=== PATIENT | female | born 1975 | race Caucasian/White ===

== ENCOUNTER 2016-09-22 22:11 | Emergency (ER) | payer OTHER ==
[~2016-09-22] VITALS: Ht 174 cm; Wt 129.8 kg
[~2016-09-22 22:11] MED LIST: ONDA4TAB10 SL; ONDA4TAB7 SL
[2016-09-22 22:19] VITALS: BP 142/98; TEMP 37; Ht 174 cm; Wt 129.8 kg
[2016-09-22] MEDS ORDERED: LIDOCAINE HCL 2% VISC SOLN 20 ML UDC PO STA (22:49)
[2016-09-22] MEDS ORDERED: ALUMINUM/MAGNESIUM SUSP 30 ML UDC PO STA (22:49)
[2016-09-22 23:21] LABS: BASO % 0.2 %; BASO ABS # 0.03 K/uL (0-0.2); EOS % 2.3 %; HEMATOCRIT 31.2 % (37-47); IG% 0.3 %; LYMPH % 24.4 %; MEAN CELL VOLUME 64.9 fL (80-100); MEAN CORPUSCULAR HEMOGLOBIN 18.9 pg (25-34); MEAN CORPUSCULAR HGB CONC 29.2 g/dl (32-36); MONO % 3.7 %; NEUT % 69.1 %; PLATELET COUNT 440 K/uL (130-400); RED BLOOD COUNT 4.81 M/uL (4.2-5.4); WHITE BLOOD COUNT 15.97 K/uL (4.8-10.8)
[2016-09-22 23:23] LABS: URINE APPEARANCE CLEAR (CLEAR); URINE BILIRUBIN NEG (NEG); URINE COLOR YELLOW; URINE NITRITE NEG (NEG); URINE PH 6.5 (4.5-7.5); URINE SPECIFIC GRAVITY 1.021 (1.000-1.030); UROBILINOGEN NEG (NEG); ZZUR CULT IF INDIC CLEAN CATCH NO
[2016-09-22 23:33] LABS: MANUAL MICROSCOPIC REQUIRED? NO; REVIEW REQ? NO
[2016-09-22 23:38] LABS: ALT/SGPT 12 U/L (12-78); AST/SGOT 6 U/L (15-37); BLOOD UREA NITROGEN 13 mg/dl (7-18); BUN/CREATININE RATIO 15.2 (10-20); CALCIUM 8.5 mg/dl (8.5-10.1); CARBON DIOXIDE 23 mmol/L (21-32); CHLORIDE 108 mmol/L (98-107); CREATININE 0.85 mg/dl (0.60-1.20); GLUCOSE 104 mg/dl (70-99); MAGNESIUM 2.3 mg/dl (1.8-2.4); POTASSIUM 4.1 mmol/L (3.5-5.1); SODIUM 141 mmol/L (136-145)
[2016-09-22 23:48] LABS: ALKALINE PHOSPHATASE 87 U/L (45-117)
[2016-09-23] MEDS ORDERED: VNTHFA/IN INH (00:12)
[2016-09-23 00:19] LABS: PREG INTERNAL NEGATIVE QC NEG CLEAR BACKGROUND; PREG INTERNAL POSITIVE QC POS CONTROL LINE
[2016-09-23 00:32] LABS: ANISOCYTOSIS PRESENT; COMPLETE YES; MICROCYTOSIS PRESENT; POLYCHROMASIA 1+
[2016-09-23 00:49] VITALS: PULSE 76; O2SAT 100
[2016-09-23] MEDS ORDERED: PANTOprazole SOD 40 MG TAB PO STA (01:07)
[2016-09-23] MEDS ORDERED: PANT40TA PO (01:07)
[2016-09-23] MEDS ORDERED: ONDANSETRON HOME PACK 4MG OD TAB PO ONE (01:15)
--- NOTE | 2016-09-23 04:33 | EMERGENCY ROOM VISIT NOTE ---
History First contact with patient: 22:44 Chief Complaint: ABDOMINAL PAIN Stated Complaint: ABDOMINAL PAIN, NAUSEA Nursing Triage Summary: Patient c/o of abdominal pain, nausea and vomiting since July. Increased abdominal pain tonight. + Dizziness x 1 week. History of Present Illness The patient is a 40 year old female who presents to the Emergency Room with complaints of epigastric discomfort with burning and nausea for the past 2 months. Patient takes Zantac daily. No recent endoscopy. Last endoscopy was several years ago and showed gastritis. She is not on a PPI. Her gallbladder is removed. She does not drink alcohol. Patient denies chest pain, dyspnea, fever, chills, vomiting, diarrhea, black or blood in her stool. No colonoscopy. Patient also has a chronic cough. She does not smoke. Review of Systems See HPI for pertinent positives & negatives. A total of 10 systems reviewed and were otherwise negative. Past Medical/Surgical History Medical Problems: (1) Asthma (2) GERD (gastroesophageal reflux disease) (3) HTN (hypertension) (4) Kidney stone on left side (5) Ulcers (6) UTI (lower urinary tract infection) Surgical Problems: (1) H/O tubal ligation (2) Hx of cholecystectomy (3) Previous section Family History Cancer Diabetes mellitus FH: kidney disease FH: seizures Gallbladder disease Hypertension Kidney stones Lung disease Social History Smoking Status: Never Smoker Alcohol Use: none Marital Status: Housing Status: lives with family Current/Historical Medications Scheduled Pantoprazole (Protonix), 40 MG PO DAILY Scheduled PRN Albuterol Hfa (Ventolin Hfa), 2 PUFFS INH Q6H PRN for SOB/Wheezing Allergies Coded Allergies: Penicillins (Verified Allergy, Severe, "swells up and stops breathing", 04/07/14) Azithromycin (Verified Allergy, Intermediate, rash, 04/07/14) Physical Exam Vital Signs Date Time Temp Pulse Resp B/P Pulse Ox O2 Delivery O2 Flow Rate FiO2 09/23/16 00:49 76 16 100 Room Air 09/22/16 23:15 Room Air 09/22/16 22:19 37.0 80 18 142/98 98 Room Air Pain Rating (0-10): 0 Physical Exam VITALS: Vitals are noted on the nurse's note and reviewed by myself. Vital signs stable. GENERAL: Pleasant female, in no acute distress, nondiaphoretic, well-developed well-nourished. SKIN: The skin was without rashes, erythema, edema, or bruising. There is no tenting of the skin. Capillary reflex less than 2 seconds. HEAD: Normocephalic atraumatic. EARS: External auditory canals clear, tympanic membranes pearly munoz without erythema or effusion bilaterally. EYES: Pupils equal round and reactive to light and accommodation. Conjunctivae without injection, sclerae without icterus. Extraocular movements intact. NOSE: Patent, turbinates without inflammation or discharge. MOUTH: Mucous membranes moist. Pharynx without erythema or exudate. Uvula midline. Airway patent. Tongue does not deviate. NECK: Supple without nuchal rigidity. No lymphadenopathy. No thyromegaly. Cervical spine is nontender. No JVD. HEART: Regular rate and rhythm without murmurs gallops or rubs. LUNGS: Clear to auscultation bilaterally without wheezes, rales or rhonchi. No dullness to percussion. No retractions or accessory muscle use. ABDOMEN: Positive bowel sounds x 4. Normal tympanic percussion. Soft, protuberant, obese, tender to palpation epigastric region, without masses or organomegaly. Judge sign negative. No guarding or rebound tenderness. No CVA tenderness MUSCULOSKELETAL: No muscle atrophy, erythema, or edema noted. NEURO: Patient was alert and oriented to person place and time. Normal sensation to light and sharp touch. No focal neurological deficits. Medical Decision & Procedures Laboratory Results 09/22/16 23:09 Red Blood Count 4.81, Mean Corpuscular Volume 64.9, Mean Corpuscular Hemoglobin 18.9, Mean Corpuscular Hemoglobin Concent 29.2, Mean Platelet Volume 9.0, Neutrophils (%) (Auto) 69.1, Lymphocytes (%) (Auto) 24.4, Monocytes (%) (Auto) 3.7, Eosinophils (%) (Auto) 2.3, Basophils (%) (Auto) 0.2, Neutrophils # (Auto) 11.04, Lymphocytes # (Auto) 3.90, Monocytes # (Auto) 0.59, Eosinophils # (Auto) 0.37, Basophils # (Auto) 0.03 09/22/16 23:09 Test 09/22/16 22:41 09/22/16 23:09 Urine Color YELLOW Urine Appearance CLEAR (CLEAR) Urine pH 6.5 (4.5-7.5) Urine Specific [place] 1.021 (1.000-1.030) Urine Protein NEG (NEG) Urine Glucose (UA) NEG (NEG) Urine Ketones NEG (NEG) Urine Occult Blood NEG (NEG) Urine Nitrite NEG (NEG) Urine Bilirubin NEG (NEG) Urine Urobilinogen NEG (NEG) Urine Leukocyte Esterase NEG (NEG) White Blood Count 15.97 K/uL (4.8-10.8) Red Blood Count 4.81 M/uL (4.2-5.4) Hemoglobin 9.1 g/dL (12.0-16.0) Hematocrit 31.2 % (37-47) Mean Corpuscular Volume 64.9 fL (80-100) Mean Corpuscular Hemoglobin 18.9 pg (25-34) Mean Corpuscular Hemoglobin Concent 29.2 g/dl (32-36) Platelet Count 440 K/uL (130-400) Mean Platelet Volume 9.0 fL (7.4-10.4) Neutrophils (%) (Auto) 69.1 % Lymphocytes (%) (Auto) 24.4 % Monocytes (%) (Auto) 3.7 % Eosinophils (%) (Auto) 2.3 % Basophils (%) (Auto) 0.2 % Neutrophils # (Auto) 11.04 K/uL (1.4-6.5) Lymphocytes # (Auto) 3.90 K/uL (1.2-3.4) Monocytes # (Auto) 0.59 K/uL (0.11-0.59) Eosinophils # (Auto) 0.37 K/uL (0-0.5) Basophils # (Auto) 0.03 K/uL (0-0.2) RDW Standard Deviation 45.7 fL (36.4-46.3) RDW Coefficient of Variation 19.2 % (11.5-14.5) Immature Granulocyte % (Auto) 0.3 % Immature Granulocyte # (Auto) 0.04 K/uL (0.00-0.02) Polychromasia 1+ Anisocytosis PRESENT Microcytosis PRESENT Anion Gap 10.0 mmol/L (3-11) Est Creatinine Clear Calc Drug Dose 128.9 ml/min Estimated GFR () 100.7 Estimated GFR (Non- 86.9 BUN/Creatinine Ratio 15.2 (10-20) Calcium Level 8.5 mg/dl (8.5-10.1) Magnesium Level 2.3 mg/dl (1.8-2.4) Total Bilirubin 0.3 mg/dl (0.2-1) Direct Bilirubin < 0.1 mg/dl (0-0.2) Aspartate Amino Transf (AST/SGOT) 6 U/L (15-37) Alanine Aminotransferase (ALT/SGPT) 12 U/L (12-78) Alkaline Phosphatase 87 U/L (45-117) Total Protein 7.2 gm/dl (6.4-8.2) Albumin 2.8 gm/dl (3.4-5.0) Lipase 135 U/L (73-393) Thyroid Stimulating Hormone (TSH) 1.290 uIu/ml (0.300-4.500) Human Chorionic Gonadotropin, Qual NEG (NEG) Medications Administered Medications (Trade) Dose Ordered Sig/Kathie Route Start Time Stop Time Status Last Admin Dose Admin Lidocaine HCl (Viscous Lidocaine 2% Soln) 10 ml NOW STAT PO 09/22/16 22:49 09/22/16 22:53 DC 09/22/16 22:49 10 ML Al Hydroxide/Mg Hydroxide (Maalox Susp) 30 ml NOW STAT PO 09/22/16 22:49 09/22/16 22:53 DC 09/22/16 22:49 30 ML Pantoprazole Sodium (Protonix Tab) 40 mg NOW STAT PO 09/23/16 01:07 09/23/16 01:08 DC 09/23/16 01:07 40 MG Ondansetron HCl (ZOFRAN ODT 4MG Home Pack) 1 homepack UD ONCE PO 09/23/16 01:15 09/23/16 01:16 DC 09/23/16 01:15 1 HOMEPACK ED Course Prior records/ancillary studies reviewed. Triage Nursing notes reviewed. Additional history obtained from family. The patient's history was concerning for abdominal pain. Differential diagnosis: Etiologies such as appendicitis, diverticulitis, PUD, biliary pathology, UTI, pancreatitis, obstruction, mesenteric ischemia, aortic pathology, infections, inflammatory bowel disease, renal colic, as well as others were entertained. Physical examination findings: As above. ER treatment provided: GI cocktail, Protonix On reassessment the patient felt better. Diagnostics interpreted by me: ECG: Normal sinus, normal intervals, no acute ST-T wave changes. Impression normal sinus rhythm interpreted by myself The labs revealed leukocytosis, stable per chart review. Mild anemia stable per chart review. Imaging studies: Ultrasound showed fatty liver per stat radiology. Chest x-ray with no acute consolidation or pneumothorax per my interpretation. Exam and history seems consistent with GERD. Patient felt much better after being medicated as above. She states she has a chronic anemia and takes iron most likely from her heavy menstrual cycles. Patient states she sees OB for this. Patient states she's had a chronic leukocytosis. This is unchanged for her. She was advised to get her cholesterol checked. Patient was advised to update her endoscopy. She is advised follow-up family medicine in a few days or here in the ER sooner for chest pain, difficulty breathing, black or blood in her stool, abdominal pain, worsening signs or symptoms or as needed. Patient did not have acute abdomen on exam. She is well-appearing. She requested to leave. By the evaluation outlined above emergent etiologies such as appendicitis, diverticulitis, PUD, biliary pathology, UTI, pancreatitis, obstruction, mesenteric ischemia, aortic pathology, infections, inflammatory bowel disease, renal colic, as well as others were deemed relatively unlikely. The pt informed about the findings as listed above. All questions were answered and pleased with the treatment. Return instructions were outlined and the patient was discharged in stable condition. Outpatient prescription management: protonix Referral: The patient was referred back to their primary care physician for follow-up in 2 to 3 days for a recheck of the current condition. Medical Decision as above Impression Primary Impression: GERD (gastroesophageal reflux disease) Departure Information Dispostion Home / Self-Care Condition GOOD Prescriptions Pantoprazole (Protonix) 40 Mg Tab 40 MG PO DAILY for 14 Days, #14 TAB Prov: Ruth Tatum .LADARIUS 09/23/16 Forms Call Back Authorization, HOME CARE DOCUMENTATION FORM, IMPORTANT VISIT INFORMATION Patient Instructions GERD, My [facility] [place] [facility] Additional Instructions Protonix 40 m tablet daily for the next 2 weeks. Takes on empty stomach. Try Maalox for breakthrough symptoms. Avoid large meals. Follow up with your [facility] for your chronic anemia. Follow-up with family care for cholesterol check, elevated white blood count , and follow-up today's visit in 2-3 days. Return to ER sooner for chest pain, difficulty breathing, abdominal pain, black or blood in her stool, worsening signs or symptoms or as needed. Problem Qualifiers Primary Impression: GERD (gastroesophageal reflux disease) Esophagitis presence: esophagitis presence not specified Qualified Codes: K21.9 - Gastro-esophageal reflux disease without esophagitis
--- NOTE | 2016-09-23 07:09 | DIAGNOSTIC IMAGING REPORT ---
CHEST 2 VIEWS ROUTINE CLINICAL HISTORY: Cough. COMPARISON STUDY: Chest radiograph July 16, 2016. FINDINGS: Lung volumes are normal. There are no areas of consolidation to suggest pneumonia. There is no pneumothorax or pleural effusion. Cardiac size is normal. Mediastinal contours are normal. There are cholecystectomy clips. IMPRESSION: No acute cardiopulmonary findings. Electronically signed by: Puma Davis M.D. 09/23/2016 7:07 AM Dictated Date/Time: 09/23/2016 7:07 AM
--- NOTE | 2016-09-23 07:19 | DIAGNOSTIC IMAGING REPORT ---
ULTRASOUND RIGHT UPPER QUADRANT ABDOMEN CLINICAL HISTORY: Epigastric abdominal pain. COMPARISON STUDY: Abdominal CT dated 11/29/2013. TECHNIQUE: Real-time, grayscale, and color flow sonography of the right upper quadrant of the abdomen was performed. Images are reviewed in the transverse and longitudinal planes. FINDINGS: Liver: The liver is enlarged, measuring over 20 cm in length. The liver demonstrates heterogeneously increased echotexture consistent with moderate to severe hepatic steatosis. There is no intrahepatic biliary ductal dilatation. The main portal vein is patent. Gallbladder: The gallbladder is surgically absent. The common bile duct measures up to 0.7 cm in diameter. Pancreas: Visualized portions of the pancreatic head are normal in appearance. Majority of the pancreas was not well visualized. Right kidney: Survey images of the right kidney demonstrate normal size and echotexture. There is no hydronephrosis. A 1.2 cm cyst is incidentally noted. Ascites: None. IMPRESSION: 1. No acute sonographic abnormality is identified in the right upper quadrant noting status post cholecystectomy. 2. Hepatomegaly noting moderate to severe hepatic steatosis. Electronically signed by: Edgard Ray M.D. 09/23/2016 7:18 AM Dictated Date/Time: 09/23/2016 7:16 AM
[2016-12-16] MEDS ORDERED: POLY150C4 PO (10:56)
[2016-12-16] MEDS ORDERED: PANT40TA PO (10:56)
[2016-12-16] MEDS ORDERED: ONDA4TAB46 PO (10:56)
[2016-12-16] MEDS ORDERED: LEVOIUD (10:56)
== END 2016-09-23 01:28 | disposition home or self-care (01) ==
LOC: C.EDB 22:13 → C.EDA 09-23 01:28
DX: K21.9 Gastro-esophageal reflux disease without esophagitis (principal); J45.909 Unspecified asthma, uncomplicated; I10 Essential (primary) hypertension; Z87.442 Personal history of urinary calculi; Z83.79 Family history of other diseases of the digestive system; Z83.3 Family history of diabetes mellitus; Z82.49 Family history of ischemic heart disease and other diseases of the circulatory system; Z84.1 Family history of disorders of kidney and ureter; Z79.899 Other long term (current) drug therapy

== ENCOUNTER → 2016-10-03 | Outpatient (CLI) | payer OTHER ==
[~2016-10-03] MED LIST changes: +LEVOIUD; -ONDA4TAB10 SL; +ONDA4TAB46 PO; -ONDA4TAB7 SL; +PANT40TA PO; +POLY150C4 PO; +VNTHFA/IN INH
[2016-10-03 12:51] LABS: BASO % 0.1 %; BASO ABS # 0.02 K/uL (0-0.2); EOS % 1.9 %; IG% 0.3 %; LYMPH % 22.1 %; MEAN CELL VOLUME 63.6 fL (80-100); MEAN CORPUSCULAR HEMOGLOBIN 18.9 pg (25-34); MEAN CORPUSCULAR HGB CONC 29.7 g/dl (32-36); MEAN PLATELET VOLUME 9.2 fL (7.4-10.4); MONO % 2.8 %; NEUT % 72.8 %; PLATELET COUNT 439 K/uL (130-400); RED BLOOD COUNT 5.19 M/uL (4.2-5.4); WHITE BLOOD COUNT 14.01 K/uL (4.8-10.8)
[2016-10-03 13:29] LABS: COMPLETE YES; HYPOCHROMIA PRESENT; MICROCYTOSIS PRESENT; OVALOCYTES 1+
[2016-10-03 17:27] LABS: ALKALINE PHOSPHATASE 93 U/L (45-117); ALT/SGPT 14 U/L (12-78); AST/SGOT 11 U/L (15-37); BLOOD UREA NITROGEN 13 mg/dl (7-18); BUN/CREATININE RATIO 14.5 (10-20); CALCIUM 8.7 mg/dl (8.5-10.1); CARBON DIOXIDE 25 mmol/L (21-32); CHLORIDE 107 mmol/L (98-107); CHOLESTEROL 159 mg/dl (0-200); CHOLESTEROL/HDL RATIO 3.8; GLUCOSE 82 mg/dl (70-99); HDL CHOLESTEROL 42 mg/dl; LDL CHOLESTEROL CALCULATED 94 mg/dl; POTASSIUM 4.3 mmol/L (3.5-5.1); SODIUM 140 mmol/L (136-145); TRIGLYCERIDES 114 mg/dl (0-150); VERY LOW DENSITY LIPOPROT CALC 23 mg/dl
[2016-10-03 17:34] LABS: ALB/GLOB RATIO 0.7 (0.9-2); TOTAL IRON BINDING CAPACITY 396 mcg/dl (250-450)
== END | disposition home or self-care (01) ==
LOC: C.LABPBG 11:40
PROVIDERS: ATTEND Neuromusculoskeletal Medicine & OMM
DX: D64.9 Anemia, unspecified (principal); R42 Dizziness and giddiness

== ENCOUNTER → 2016-10-05 | Outpatient (CLI) | payer OTHER ==
[2016-10-11 23:33] LABS: IGA SERUM 210 mg/dL (81-463); TIS TRANS IGA 1 U/mL (<4)
== END | disposition home or self-care (01) ==
LOC: C.LABPBG 12:36
PROVIDERS: ATTEND Registered Nurse
DX: D64.9 Anemia, unspecified (principal)

== ENCOUNTER → 2016-12-21 | Day surgery (SDC) | payer OTHER ==
[2016-12-16 10:57] VITALS: BMI 42.0
[~2016-12-21] VITALS: Ht 175.3 cm; Wt 129.6 kg
[~2016-12-21] MED LIST changes: +LIDOCAINE HCL 2% 2 ML VIAL (20MG/ML) ONE; +MIDAZOLAM HCL 1 MG/ML 2ML VIAL ONE; +ONDANSETRON INJ 2 MG/ML 2 ML VIAL ONE; +PROPOFOL IV EMULSION 10 MG/ML 20 ML VIAL IV ONE; +SODIUM CHLORIDE 0.9% 500ML 500 ML IV ONE
[2016-12-21 12:17] VITALS: Ht 175.3 cm; Wt 129.6 kg
[2016-12-21 12:36] VITALS: TEMP 37.1
--- NOTE | 2016-12-21 13:29 | Endo History and Physical ---
History & Physical Date of Service: December 21, 2016. Chief Complaint: EOSINOPHILIC ESOPHAGITIS Referring Physician: DR. BOWERS History of Present Illness 41 yo CF who presents for EGD secondary to eosinophilic esophagitis. Past Surgical History Hx Cardiac Surgery: No Hx Internal Defibrillator: No Hx Pacemaker: No Hx Abdominal Surgery: Yes (MICHEL, , TUBAL LIGATION, MULTIPLE D&C'S) Hx of Implantable Prosthesis: No Hx Post-Op Nausea and Vomiting: No Hx Cancer Surgery: No Hx Thoracic Surgery: No Hx Orthopedic: No Hx Urinary Tract Surgery: No Family History IBD Social History Smoking Status: Never Smoker Hx Substance Use: No Hx Alcohol Use: No Allergies Coded Allergies: Penicillins (Verified Allergy, Severe, "swells up and stops breathing", ) Azithromycin (Verified Allergy, Intermediate, rash, 12/21/16) Current Medications Reported Home Medications Medications Dose Route/Sig Max Daily Dose Days Date Category Mirena (Levonorgestrel (Iud)) 20 Mcg/24 Hr Iud 1 Unit CONTINOUS 12/16/16 Reported Zofran (Ondansetron HCl) 4 Mg Tab 4 Mg PO Q8H PRN 12/16/16 Reported Protonix (Pantoprazole Sodium) 40 Mg Tab 40 Mg PO QAM 12/16/16 Reported Ferrex 150 (Polysaccharide Iron Complex) 150 Mg Cap 1 Cap PO HS 12/16/16 Reported Ventolin Hfa (Albuterol) 200 Puffs/34971 Mcg Aers 1 Puffs INH Q6H PRN 09/23/16 Reported Vital Signs Weight (Kilograms): 129.55 Height (Feet): 5 Height (Inches): 9 Date Time Temp Pulse Resp B/P Pulse Ox O2 Delivery O2 Flow Rate FiO2 12/21/16 12:36 37.1 80 20 149/92 97 Room Air Physical Exam General Appearance: WD/WN, no apparent distress Respiratory/Chest: Auscultation: breath sounds normal Cardiovascular: Heart Auscultation: RRR Abdomen: Bowel Sounds: normal Inspection & Palpation: soft, non-distended, no tenderness, guarding & rebound Assessment and Plan Assessment: 41 yo CF who presents for EGD secondary to eosinophilic esophagitis. Plan: Proceed with EGD
--- NOTE | 2016-12-21 13:58 | Discharge Instructions ---
Endoscopy Patient Instructions Date / Procedure(s) Performed December 21, 2016. EGD Allergy Information Coded Allergies: Penicillins (Verified Allergy, Severe, "swells up and stops breathing", ) Azithromycin (Verified Allergy, Intermediate, rash, 12/21/16) Discharge Date / Findings December 21, 2016. Eosinophilic esophagitis s/p biopsies Esophageal stricture s/p dilation to 15mm Medication Instructions OK to resume all medications today as prescribed Reported Home Medications Medications Dose Route/Sig Max Daily Dose Days Date Category Mirena (Levonorgestrel (Iud)) 20 Mcg/24 Hr Iud 1 Unit CONTINOUS 12/16/16 Reported Zofran (Ondansetron HCl) 4 Mg Tab 4 Mg PO Q8H PRN 12/16/16 Reported Protonix (Pantoprazole Sodium) 40 Mg Tab 40 Mg PO QAM 12/16/16 Reported Ferrex 150 (Polysaccharide Iron Complex) 150 Mg Cap 1 Cap PO HS 12/16/16 Reported Ventolin Hfa (Albuterol) 200 Puffs/63693 Mcg Aers 1 Puffs INH Q6H PRN 09/23/16 Reported Provider Instructions Activity Restrictions - No exercising or heavy lifting for 24 hours. - Do not drink alcohol the day of the procedure. - Do not drive a car or operate machinery until the day after the procedure. - Do not make any important decisions or sign important papers in 24 hours after the procedure. Following Day: - Return to full activity which may include returning to work/school. Diet Start your diet with liquids and light foods (jello, soup, juice, toast). Then eat your usual diet if not nauseated. Treatment For Common After Affects For mild abdominal pain, bloating, or excessive gas: - Rest - Eat lightly - Lie on right side Follow-Up Information Follow-up with DR. BOWERS as scheduled Anesthesia Information What You Should Know You have had a procedure that required some medicine to reduce anxiety and discomfort. This treatment is called moderate sedation. After receiving the treatment, you may be sleepy, but you will be able to breathe on your own. The effects of the treatment may last for several hours. Follow these instructions along with Activity/Diet recommendations noted above: * Do NOT do anything where dizziness or clumsiness would be dangerous. * Rest quietly at home today, then you can be up and about tomorrow. * Have a responsible person stay with you the rest of today. * You may have had an I.V. today. If so, you may take the dressing off later today. Recommendations Call your doctor if: * Trouble breathing * Continuous vomiting for more than 24 hours * Temperature above 101 degrees * Severe abdominal pain or bloating * Pain not relieved by pain medicine ordered * There is increased drainage or redness from any incision * A large amount of rectal bleeding greater than 2-3 tablespoons. (If you had a polyp/s removed or have hemorrhoids, a small amount of blood - from the rectum is to be expected.) * You have any unanswered questions or concerns. IN THE EVENT OF A SERIOUS EMERGENCY, GO TO THE NEAREST EMERGENCY ROOM Your discharge instructions were prepared by provider Leopoldo Angelo. Patient Instructions Signature Page Kristen Carcamo Patient (or Guardian) Signature/Date: I have read and understand the instructions given to me by my caregivers. Caregiver/RN/Doctor Signature/Date: The above-named patient and/or guardian has received patient instructions on this date. + Original Patient Signature Page (only) stays with chart. Please make copy for patient.
--- NOTE | 2016-12-21 14:06 | GI REPORT ---
Procedure Date: 12/21/2016 1:13 PM Procedure: Upper GI endoscopy Indications: Follow-up of eosinophilic esophagitis Medicines: Monitored Anesthesia Care Complications: No immediate complications. Estimated Blood Loss: Estimated blood loss: none. Procedure: Pre-Anesthesia Assessment: - Prior to the procedure, a History and Physical was performed, and patient medications and allergies were reviewed. The patient's tolerance of previous anesthesia was also reviewed. The risks and benefits of the procedure and the sedation options and risks were discussed with the patient. All questions were answered, and informed consent was obtained. Prior Anticoagulants: The patient has taken no previous anticoagulant or antiplatelet agents. ASA Grade Assessment: III - A patient with severe systemic disease. After reviewing the risks and benefits, the patient was deemed in satisfactory condition to undergo the procedure. After obtaining informed consent, the endoscope was passed under direct vision. Throughout the procedure, the patient's blood pressure, pulse, and oxygen saturations were monitored continuously. The scope was introduced through the mouth, and advanced to the second part of duodenum. The upper GI endoscopy was accomplished without difficulty. The patient tolerated the procedure well. Findings: Mucosal changes including ringed esophagus and longitudinal furrows were found in the entire esophagus. Biopsies were taken with a cold forceps for histology. One moderate benign-appearing, intrinsic stenosis was found. This measured 1.2 cm (inner diameter) x 1 cm (in length) and was traversed. A TTS dilator was passed through the scope. Dilation with a 12-13.5-15 mm balloon (to a maximum balloon size of 15 mm) dilator was performed. The dilation site was examined and showed moderate improvement in luminal narrowing. The stomach was normal. The examined duodenum was normal. Impression: - Esophageal mucosal changes consistent with eosinophilic esophagitis. Biopsied. - Benign-appearing esophageal stenosis. Dilated. - Normal stomach. - Normal examined duodenum. Recommendation: - Resume previous diet. - Continue present medications. - Await pathology results. - Return to GI office as previously scheduled. Leopoldo Angelo DO 12/21/2016 2:05:19 PM This report has been signed electronically. Note Initiated On: 12/21/2016 1:13 PM I attest to the content of the Intraoperative Record and orders documented therein, exceptions below
--- NOTE | 2016-12-21 14:16 | Anesthesiology Progress Note ---
Anesthesia Post Op Note Date & Time December 21, 2016 at 14:16 Vital Signs Pain Intensity: 0 Vital Signs Past 12 Hours Date Time Temp Pulse Resp B/P Pulse Ox O2 Delivery O2 Flow Rate FiO2 12/21/16 14:05 84 18 130/85 98 Room Air 12/21/16 13:50 85 20 134/80 95 Room Air 12/21/16 12:36 37.1 80 20 149/92 97 Room Air Notes Mental Status: alert / awake / arousable, participated in evaluation Pt Amnestic to Procedure: Yes Nausea / Vomiting: adequately controlled Pain: adequately controlled Airway Patency, RR, SpO2: stable & adequate BP & HR: stable & adequate Hydration State: stable & adequate Anesthetic Complications: no major complications apparent
[2016-12-21 14:20] VITALS: BP 119/72; PULSE 82; O2SAT 98
== END | disposition home or self-care (01) ==
LOC: C.GI 12:10
PROVIDERS: ATTEND Internal Medicine
DX: K20.0 Eosinophilic esophagitis (principal); K22.2 Esophageal obstruction; Z83.79 Family history of other diseases of the digestive system; Z79.899 Other long term (current) drug therapy

== ENCOUNTER → 2017-01-06 | Outpatient (CLI) | payer OTHER ==
[~2017-01-06] MED LIST changes: -LIDOCAINE HCL 2% 2 ML VIAL (20MG/ML) ONE; -MIDAZOLAM HCL 1 MG/ML 2ML VIAL ONE; -ONDANSETRON INJ 2 MG/ML 2 ML VIAL ONE; -PROPOFOL IV EMULSION 10 MG/ML 20 ML VIAL IV ONE; -SODIUM CHLORIDE 0.9% 500ML 500 ML IV ONE
[2017-01-06 17:19] LABS: URINE APPEARANCE CLEAR (CLEAR); URINE BILIRUBIN NEG (NEG); URINE COLOR YELLOW; URINE EPITHELIAL CELL AUTO 20-30 /lpf (0-5); URINE NITRITE NEG (NEG); URINE SPECIFIC GRAVITY 1.029 (1.000-1.030); UROBILINOGEN NEG (NEG); ZZUR CULT IF INDIC CLEAN CATCH NO
[2017-01-06 17:21] LABS: MANUAL MICROSCOPIC REQUIRED? NO; REVIEW REQ? NO
== END | disposition home or self-care (01) ==
LOC: C.LABPBG 15:45
PROVIDERS: ATTEND Neuromusculoskeletal Medicine & OMM
DX: R35.0 Frequency of micturition (principal)

== ENCOUNTER → 2017-01-09 | Outpatient (CLI) | payer OTHER ==
[2017-01-09 18:09] LABS: BASO % 0.1 %; BASO ABS # 0.02 K/uL (0-0.2); COMPLETE YES; EOS % 1.4 %; HEMATOCRIT 33.8 % (37-47); IG% 0.3 %; LYMPH % 20.6 %; LYMPH ABS # 2.99 K/uL (1.2-3.4); MEAN CELL VOLUME 66.3 fL (80-100); MEAN CORPUSCULAR HGB CONC 28.7 g/dl (32-36); MEAN PLATELET VOLUME 9.3 fL (7.4-10.4); MICROCYTOSIS PRESENT; MONO % 4.3 %; NEUT % 73.3 %; OVALOCYTES 1+; PLATELET COUNT 527 K/uL (130-400); POLYCHROMASIA 1+; WHITE BLOOD COUNT 14.54 K/uL (4.8-10.8)
== END | disposition home or self-care (01) ==
LOC: C.LABPBG 15:53
PROVIDERS: ATTEND Obstetrics & Gynecology
DX: Z30.430 Encounter for insertion of intrauterine contraceptive device (principal); N92.0 Excessive and frequent menstruation with regular cycle; R10.2 Pelvic and perineal pain

== ENCOUNTER → 2017-01-24 | Day surgery (SDC) | payer OTHER ==
[2017-01-16 08:20] VITALS: Ht 174 cm; Wt 129.6 kg
[~2017-01-24] VITALS: Ht 174 cm; Wt 129.6 kg
[~2017-01-24] MED LIST changes: +ATROPINE SULFATE 0.1 MG/ML 5ML SYR IV PRN; +EpHEDrine SULFATE INJ 50 MG/ML AMP IV PRN; +MIDAZOLAM HCL 1 MG/ML 2ML VIAL ONE; +PROPOFOL IV EMULSION 10 MG/ML 20 ML VIAL IV ONE; +SODIUM CHLORIDE 0.9% 500ML 500 ML IV ONE
--- NOTE | 2017-01-24 11:57 | Endo History and Physical ---
History & Physical Date of Service: Jan 24, 2017. Chief Complaint: anemia Referring Physician: Dr. Misael Davis History of Present Illness 41 yo CF who presents for colonoscopy secondary to anemia. Past Surgical History Hx Cardiac Surgery: No Hx Internal Defibrillator: No Hx Pacemaker: No Hx Abdominal Surgery: Yes (MICHEL, , TUBAL LIGATION, MULTIPLE D&C'S) Hx of Implantable Prosthesis: No Hx Post-Op Nausea and Vomiting: No Hx Cancer Surgery: No Hx Thoracic Surgery: No Hx Orthopedic: No Hx Urinary Tract Surgery: No Family History None Social History Smoking Status: Never Smoker Hx Substance Use: No Hx Alcohol Use: No Allergies Coded Allergies: Penicillins (Verified Allergy, Severe, "swells up and stops breathing", 07/23) Azithromycin (Verified Allergy, Intermediate, rash, 01/16/17) Current Medications Reported Home Medications Medications Dose Route/Sig Max Daily Dose Days Date Category Mirena (Levonorgestrel (Iud)) 20 Mcg/24 Hr Iud 1 Unit CONTINOUS 12/16/16 Reported Zofran (Ondansetron HCl) 4 Mg Tab 4 Mg PO Q8H PRN 12/16/16 Reported Protonix (Pantoprazole Sodium) 40 Mg Tab 40 Mg PO QAM 12/16/16 Reported Ferrex 150 (Polysaccharide Iron Complex) 150 Mg Cap 1 Cap PO HS 12/16/16 Reported Ventolin Hfa (Albuterol) 200 Puffs/31900 Mcg Aers 1 Puffs INH Q6H PRN 09/23/16 Reported Vital Signs Weight (Kilograms): 129.55 Height (Feet): 5 Height (Inches): 8.5 Date Time Temp Pulse Resp B/P (MAP) Pulse Ox O2 Delivery O2 Flow Rate FiO2 01/24/17 11:06 36.9 90 20 132/88 (103) 97 Room Air Physical Exam General Appearance: WD/WN, no apparent distress Respiratory/Chest: Auscultation: breath sounds normal Cardiovascular: Heart Auscultation: RRR Abdomen: Bowel Sounds: normal Inspection & Palpation: soft, non-distended, no tenderness, guarding & rebound Assessment and Plan Assessment: 41 yo CF who presents for colonoscopy secondary to anemia. Plan: Proceed with colonoscopy.
--- NOTE | 2017-01-24 12:13 | Discharge Instructions ---
Endoscopy Patient Instructions Date / Procedure(s) Performed Jan 24, 2017. Colonoscopy Allergy Information Coded Allergies: Penicillins (Verified Allergy, Severe, "swells up and stops breathing", 07/23) Azithromycin (Verified Allergy, Intermediate, rash, 01/16/17) Discharge Date / Findings Jan 24, 2017. Diverticulosis Internal hemorrhoids Medication Instructions OK to resume all medications today as prescribed Medications Dose Route/Sig Max Daily Dose Days Date Category Mirena (Levonorgestrel (Iud)) 20 Mcg/24 Hr Iud 1 Unit CONTINOUS 12/16/16 Reported Zofran (Ondansetron HCl) 4 Mg Tab 4 Mg PO Q8H PRN 12/16/16 Reported Protonix (Pantoprazole Sodium) 40 Mg Tab 40 Mg PO QAM 12/16/16 Reported Ferrex 150 (Polysaccharide Iron Complex) 150 Mg Cap 1 Cap PO HS 12/16/16 Reported Ventolin Hfa (Albuterol) 200 Puffs/42511 Mcg Aers 1 Puffs INH Q6H PRN 09/23/16 Reported Provider Instructions Activity Restrictions - No exercising or heavy lifting for 24 hours. - Do not drink alcohol the day of the procedure. - Do not drive a car or operate machinery until the day after the procedure. - Do not make any important decisions or sign important papers in 24 hours after the procedure. Following Day: - Return to full activity which may include returning to work/school. Diet Start your diet with liquids and light foods (jello, soup, juice, toast). Then eat your usual diet if not nauseated. Treatment For Common After Affects For mild abdominal pain, bloating, or excessive gas: - Rest - Eat lightly - Lie on right side Follow-Up Information Follow-up with Dr. Misael Davis as scheduled Anesthesia Information What You Should Know You have had a procedure that required some medicine to reduce anxiety and discomfort. This treatment is called moderate sedation. After receiving the treatment, you may be sleepy, but you will be able to breathe on your own. The effects of the treatment may last for several hours. Follow these instructions along with Activity/Diet recommendations noted above: * Do NOT do anything where dizziness or clumsiness would be dangerous. * Rest quietly at home today, then you can be up and about tomorrow. * Have a responsible person stay with you the rest of today. * You may have had an I.V. today. If so, you may take the dressing off later today. Recommendations Call your doctor if: * Trouble breathing * Continuous vomiting for more than 24 hours * Temperature above 101 degrees * Severe abdominal pain or bloating * Pain not relieved by pain medicine ordered * There is increased drainage or redness from any incision * A large amount of rectal bleeding greater than 2-3 tablespoons. (If you had a polyp/s removed or have hemorrhoids, a small amount of blood - from the rectum is to be expected.) * You have any unanswered questions or concerns. IN THE EVENT OF A SERIOUS EMERGENCY, GO TO THE NEAREST EMERGENCY ROOM Your discharge instructions were prepared by provider Leopoldo Angelo. Patient Instructions Signature Page Kristen Carcamo Patient (or Guardian) Signature/Date: I have read and understand the instructions given to me by my caregivers. Caregiver/RN/Doctor Signature/Date: The above-named patient and/or guardian has received patient instructions on this date. + Original Patient Signature Page (only) stays with chart. Please make copy for patient.
--- NOTE | 2017-01-24 12:18 | GI REPORT ---
Procedure Date: 01/24/2017 11:55 AM THIS REPORT HAS BEEN AMENDED Addendum Number: 1 Addendum Date: 01/30/2017 4:44:48 PM No specimens were collected on this exam, and therefore, no pathology is pending. Repeat colonoscopy in 10 years. Procedure: Colonoscopy Indications: Iron deficiency anemia Medicines: Monitored Anesthesia Care Complications: No immediate complications. Estimated Blood Loss: Estimated blood loss: none. Procedure: Pre-Anesthesia Assessment: - Prior to the procedure, a History and Physical was performed, and patient medications and allergies were reviewed. The patient's tolerance of previous anesthesia was also reviewed. The risks and benefits of the procedure and the sedation options and risks were discussed with the patient. All questions were answered, and informed consent was obtained. Prior Anticoagulants: The patient has taken no previous anticoagulant or antiplatelet agents. ASA Grade Assessment: II - A patient with mild systemic disease. After reviewing the risks and benefits, the patient was deemed in satisfactory condition to undergo the procedure. After I obtained informed consent, the scope was passed under direct vision. Throughout the procedure, the patient's blood pressure, pulse, and oxygen saturations were monitored continuously. The scope was introduced through the anus and advanced to the terminal ileum. The colonoscopy was performed without difficulty. The patient tolerated the procedure well. The quality of the bowel preparation was good. The terminal ileum, ileocecal valve, appendiceal orifice, and rectum were photographed. Findings: Scattered small-mouthed diverticula were found in the entire colon. Non-bleeding internal hemorrhoids were found during retroflexion. The hemorrhoids were small. Impression: - Diverticulosis in the sigmoid colon. - Non-bleeding internal hemorrhoids. - No specimens collected. Recommendation: - Resume previous diet. - Continue present medications. - Repeat colonoscopy for surveillance based on pathology results. - Return to primary care physician as previously scheduled. Leopoldo Angelo, DO 01/24/2017 12:17:11 PM This report has been signed electronically. Note Initiated On: 01/24/2017 11:55 AM I attest to the content of the Intraoperative Record and orders documented therein, exceptions below Leopoldo Angelo, DO 01/30/2017 4:45:58 PM This report has been signed electronically.
--- NOTE | 2017-01-24 12:22 | Anesthesiology Progress Note ---
Anesthesia Post Op Note Date & Time Jan 24, 2017 at 12:22 Vital Signs Pain Intensity: 0 Vital Signs Past 12 Hours Date Time Temp Pulse Resp B/P (MAP) Pulse Ox O2 Delivery O2 Flow Rate FiO2 01/24/17 12:14 92 16 111/69 (83) 95 Room Air 01/24/17 11:06 36.9 90 20 132/88 (103) 97 Room Air Notes Mental Status: alert / awake / arousable, participated in evaluation Pt Amnestic to Procedure: Yes Nausea / Vomiting: adequately controlled Pain: adequately controlled Airway Patency, RR, SpO2: stable & adequate BP & HR: stable & adequate Hydration State: stable & adequate Anesthetic Complications: no major complications apparent
[2017-01-24 12:48] VITALS: BP 117/89; PULSE 87; O2SAT 97
== END | disposition home or self-care (01) ==
LOC: C.GI 10:47
PROVIDERS: ATTEND Internal Medicine
DX: K57.30 Diverticulosis of large intestine without perforation or abscess without bleeding (principal); K64.8 Other hemorrhoids; D50.9 Iron deficiency anemia, unspecified; Z79.899 Other long term (current) drug therapy

== ENCOUNTER → 2017-05-17 | Day surgery (SDC) | payer OTHER ==
[2017-05-10 14:49] VITALS: Ht 174 cm; Wt 129.6 kg
[~2017-05-17] VITALS: Ht 174 cm; Wt 129.6 kg
[~2017-05-17] MED LIST changes: -ATROPINE SULFATE 0.1 MG/ML 5ML SYR IV PRN; -EpHEDrine SULFATE INJ 50 MG/ML AMP IV PRN; +LIDOCAINE HCL 2% 2 ML VIAL (20MG/ML) ONE; -MIDAZOLAM HCL 1 MG/ML 2ML VIAL ONE
--- NOTE | 2017-05-17 14:09 | Endo History and Physical ---
History & Physical Date of Service: May 17, 2017. Chief Complaint: eosinophilic esophagitis Referring Physician: Dr. Misael Davis History of Present Illness 41 yo CF who presents for EGD secondary to Eosinophilic esophagitis. Past Surgical History Hx Cardiac Surgery: No Hx Internal Defibrillator: No Hx Pacemaker: No Hx Abdominal Surgery: Yes (MICHEL, , TUBAL LIGATION, MULTIPLE D&C'S) Hx of Implantable Prosthesis: No Hx Post-Op Nausea and Vomiting: No Hx Cancer Surgery: No Hx Thoracic Surgery: No Hx Orthopedic: No Hx Urinary Tract Surgery: No Family History None Social History Smoking Status: Never Smoker Hx Substance Use: No Hx Alcohol Use: No Allergies Coded Allergies: Penicillins (Verified Allergy, Severe, "swells up and stops breathing", ) Azithromycin (Verified Allergy, Intermediate, rash, 05/10/17) Current Medications Reported Home Medications Medications Dose Route/Sig Max Daily Dose Days Date Category Mirena (Levonorgestrel (Iud)) 20 Mcg/24 Hr Iud 1 Unit CONTINOUS 12/16/16 Reported Zofran (Ondansetron HCl) 4 Mg Tab 4 Mg PO Q8H PRN 12/16/16 Reported Protonix (Pantoprazole Sodium) 40 Mg Tab 40 Mg PO QAM 12/16/16 Reported Ferrex 150 (Polysaccharide Iron Complex) 150 Mg Cap 1 Cap PO HS 12/16/16 Reported Ventolin Hfa (Albuterol) 200 Puffs/73382 Mcg Aers 1 Puffs INH Q6H PRN 09/23/16 Reported Vital Signs Weight (Kilograms): 129.55 Height (Feet): 5 Height (Inches): 8.5 Date Time Temp Pulse Resp B/P (MAP) Pulse Ox O2 Delivery O2 Flow Rate FiO2 05/17/17 13:44 36.6 92 18 142/88 (106) 97 Room Air Physical Exam General Appearance: WD/WN, no apparent distress Respiratory/Chest: Auscultation: breath sounds normal Cardiovascular: Heart Auscultation: RRR Abdomen: Bowel Sounds: normal Inspection & Palpation: soft, non-distended, no tenderness, guarding & rebound Assessment and Plan Assessment: 41 yo CF who presents for EGD secondary to Eosinophilic esophagitis. Plan: Proceed with colonoscopy.
--- NOTE | 2017-05-17 14:33 | GI REPORT ---
Procedure Date: 05/17/2017 1:35 PM Procedure: Upper GI endoscopy Indications: Eosinophilic esophagitis Medicines: Monitored Anesthesia Care Complications: No immediate complications. Estimated Blood Loss: Estimated blood loss: none. Procedure: Pre-Anesthesia Assessment: - Prior to the procedure, a History and Physical was performed, and patient medications and allergies were reviewed. The patient's tolerance of previous anesthesia was also reviewed. The risks and benefits of the procedure and the sedation options and risks were discussed with the patient. All questions were answered, and informed consent was obtained. Prior Anticoagulants: The patient has taken no previous anticoagulant or antiplatelet agents. ASA Grade Assessment: II - A patient with mild systemic disease. After reviewing the risks and benefits, the patient was deemed in satisfactory condition to undergo the procedure. After obtaining informed consent, the endoscope was passed under direct vision. Throughout the procedure, the patient's blood pressure, pulse, and oxygen saturations were monitored continuously. The Scope was introduced through the mouth, and advanced to the second part of duodenum. The upper GI endoscopy was accomplished without difficulty. The patient tolerated the procedure well. Findings: Mucosal changes including ringed esophagus and feline appearance were found in the entire esophagus. Biopsies were taken with a cold forceps for histology. A TTS dilator was passed through the scope. Dilation with a 15-16.5-18 mm balloon (to a maximum balloon size of 18 mm) dilator was performed. The dilation site was examined and showed moderate improvement in luminal narrowing. The stomach was normal. The examined duodenum was normal. Impression: - Esophageal mucosal changes consistent with eosinophilic esophagitis. Biopsied. Dilated. - Normal stomach. - Normal examined duodenum. Recommendation: - Resume previous diet. - Continue present medications. - Await pathology results. - Return to primary care physician as previously scheduled. Leopoldo Angelo DO 05/17/2017 2:33:07 PM This report has been signed electronically. Note Initiated On: 05/17/2017 1:35 PM I attest to the content of the Intraoperative Record and orders documented therein, exceptions below
--- NOTE | 2017-05-17 14:34 | Discharge Instructions ---
Endoscopy Patient Instructions Date / Procedure(s) Performed May 17, 2017. EGD Allergy Information Coded Allergies: Penicillins (Verified Allergy, Severe, "swells up and stops breathing", ) Azithromycin (Verified Allergy, Intermediate, rash, 05/10/17) Discharge Date / Findings May 17, 2017. Eosinophilic esophagitis s/p biopsies Eosinophilic esophagitis s/p dilation of stricture Medication Instructions 1) Increase Protonix 40mg by mouth twice daily 2) OK to resume all medications today as prescribed Reported Home Medications Medications Dose Route/Sig Max Daily Dose Days Date Category Mirena (Levonorgestrel (Iud)) 20 Mcg/24 Hr Iud 1 Unit CONTINOUS 12/16/16 Reported Zofran (Ondansetron HCl) 4 Mg Tab 4 Mg PO Q8H PRN 12/16/16 Reported Protonix (Pantoprazole Sodium) 40 Mg Tab 40 Mg PO QAM 12/16/16 Reported Ferrex 150 (Polysaccharide Iron Complex) 150 Mg Cap 1 Cap PO HS 12/16/16 Reported Ventolin Hfa (Albuterol) 200 Puffs/71420 Mcg Aers 1 Puffs INH Q6H PRN 09/23/16 Reported Provider Instructions Activity Restrictions - No exercising or heavy lifting for 24 hours. - Do not drink alcohol the day of the procedure. - Do not drive a car or operate machinery until the day after the procedure. - Do not make any important decisions or sign important papers in 24 hours after the procedure. Following Day: - Return to full activity which may include returning to work/school. Diet Start your diet with liquids and light foods (jello, soup, juice, toast). Then eat your usual diet if not nauseated. Treatment For Common After Affects For mild abdominal pain, bloating, or excessive gas: - Rest - Eat lightly - Lie on right side Follow-Up Information Follow-up with Dr. Misael Davis as scheduled Anesthesia Information What You Should Know You have had a procedure that required some medicine to reduce anxiety and discomfort. This treatment is called moderate sedation. After receiving the treatment, you may be sleepy, but you will be able to breathe on your own. The effects of the treatment may last for several hours. Follow these instructions along with Activity/Diet recommendations noted above: * Do NOT do anything where dizziness or clumsiness would be dangerous. * Rest quietly at home today, then you can be up and about tomorrow. * Have a responsible person stay with you the rest of today. * You may have had an I.V. today. If so, you may take the dressing off later today. Recommendations Call your doctor if: * Trouble breathing * Continuous vomiting for more than 24 hours * Temperature above 101 degrees * Severe abdominal pain or bloating * Pain not relieved by pain medicine ordered * There is increased drainage or redness from any incision * A large amount of rectal bleeding greater than 2-3 tablespoons. (If you had a polyp/s removed or have hemorrhoids, a small amount of blood - from the rectum is to be expected.) * You have any unanswered questions or concerns. IN THE EVENT OF A SERIOUS EMERGENCY, GO TO THE NEAREST EMERGENCY ROOM Your discharge instructions were prepared by provider Leopoldo Angelo. Patient Instructions Signature Page Kristen Carcamo Patient (or Guardian) Signature/Date: I have read and understand the instructions given to me by my caregivers. Caregiver/RN/Doctor Signature/Date: The above-named patient and/or guardian has received patient instructions on this date. + Original Patient Signature Page (only) stays with chart. Please make copy for patient.
--- NOTE | 2017-05-17 14:52 | Anesthesiology Progress Note ---
Anesthesia Post Op Note Date & Time May 17, 2017 at 14:52 Vital Signs Pain Intensity: 0 Vital Signs Past 12 Hours Date Time Temp Pulse Resp B/P (MAP) Pulse Ox O2 Delivery O2 Flow Rate FiO2 05/17/17 14:44 85 20 111/77 (88) 96 Room Air 05/17/17 14:32 85 20 109/77 (88) 96 Room Air 05/17/17 13:44 36.6 92 18 142/88 (106) 97 Room Air Notes Mental Status: alert / awake / arousable, participated in evaluation Pt Amnestic to Procedure: Yes Nausea / Vomiting: adequately controlled Pain: adequately controlled Airway Patency, RR, SpO2: stable & adequate BP & HR: stable & adequate Hydration State: stable & adequate Anesthetic Complications: no major complications apparent
[2017-05-17 15:03] VITALS: BP 105/69; PULSE 86; O2SAT 96
== END | disposition home or self-care (01) ==
LOC: C.GI 13:26
PROVIDERS: ATTEND Internal Medicine
DX: K20.0 Eosinophilic esophagitis (principal); J45.909 Unspecified asthma, uncomplicated; E66.9 Obesity, unspecified; Z90.49 Acquired absence of other specified parts of digestive tract

== ENCOUNTER → 2017-08-17 | Outpatient (CLI) | payer OTHER ==
[~2017-08-17] MED LIST changes: +LEVO1IUD2; -LEVOIUD; -LIDOCAINE HCL 2% 2 ML VIAL (20MG/ML) ONE; -PROPOFOL IV EMULSION 10 MG/ML 20 ML VIAL IV ONE; -SODIUM CHLORIDE 0.9% 500ML 500 ML IV ONE
== END | disposition home or self-care (01) ==
LOC: C.PAPS 09:45
PROVIDERS: ATTEND Obstetrics & Gynecology
DX: Z01.419 Encounter for gynecological examination (general) (routine) without abnormal findings (principal)

== ENCOUNTER → 2017-08-23 | Outpatient (CLI) | payer OTHER | END | disposition home or self-care (01) | LOC: C.PATHSPEC 17:30 | PROVIDERS: ATTEND Obstetrics & Gynecology | DX: N92.0 Excessive and frequent menstruation with regular cycle (principal) ==

== ENCOUNTER → 2017-09-11 | Outpatient (CLI) | payer OTHER ==
[2017-09-11 12:38] LABS: BASO % 0.2 %; BASO ABS # 0.03 K/uL (0-0.2); EOS % 2.2 %; EOS ABS # 0.38 K/uL (0-0.5); HEMATOCRIT 39.8 % (37-47); HEMOGLOBIN 12.1 g/dL (12.0-16.0); IG# 0.07 K/uL (0.00-0.02); LYMPH % 22.5 %; LYMPH ABS # 3.94 K/uL (1.2-3.4); MEAN CELL VOLUME 70.2 fL (80-100); MEAN CORPUSCULAR HEMOGLOBIN 21.3 pg (25-34); MEAN CORPUSCULAR HGB CONC 30.4 g/dl (32-36); MEAN PLATELET VOLUME 9.5 fL (7.4-10.4); MONO % 3.4 %; MONO ABS # 0.59 K/uL (0.11-0.59); NEUT % 71.3 %; NEUT ABS # 12.54 K/uL (1.4-6.5); PLATELET COUNT 472 K/uL (130-400); RED CELL DISTRIBUTION WIDTH CV 19.8 % (11.5-14.5); RED CELL DISTRIBUTION WIDTH SD 50.2 fL (36.4-46.3); WHITE BLOOD COUNT 17.55 K/uL (4.8-10.8)
== END | disposition home or self-care (01) ==
LOC: C.LABPBG 10:10
PROVIDERS: ATTEND Obstetrics & Gynecology
DX: N92.0 Excessive and frequent menstruation with regular cycle (principal)

== ENCOUNTER → 2017-10-06 | Outpatient (CLI) | payer OTHER | END | disposition home or self-care (01) | LOC: C.LABSPEC 14:18 | PROVIDERS: ATTEND Neuromusculoskeletal Medicine & OMM | DX: R39.9 Unspecified symptoms and signs involving the genitourinary system (principal) ==

== ENCOUNTER → 2017-10-31 | Day surgery (SDC) | payer OTHER ==
[2017-10-30 14:16] VITALS: BMI 43.0
[~2017-10-31] VITALS: Ht 175.3 cm; Wt 132.3 kg
[~2017-10-31] MED LIST changes: -LEVO1IUD2; +LIDOCAINE HCL 2% 2 ML VIAL (20MG/ML) ONE; +MIDAZOLAM HCL 1 MG/ML 2ML VIAL ONE; +PROPOFOL IV EMULSION 10 MG/ML 20 ML VIAL IV ONE; +SODIUM CHLORIDE 0.9% 500ML 500 ML IV ONE
[2017-10-31 10:37] VITALS: Ht 175.3 cm; Wt 132.3 kg
--- NOTE | 2017-10-31 12:03 | Endo History and Physical ---
History & Physical Date of Service: Oct 31, 2017. Chief Complaint: EOSINOPHILLIC ESOPHAGITIS Referring Physician: DR. Joana BOWERS History of Present Illness 41 yo CF who presents for EGD secondary to Eosinophilic esophagitis. Past Surgical History Hx Cardiac Surgery: No Hx Internal Defibrillator: No Hx Pacemaker: No Hx Abdominal Surgery: Yes (MICHEL, , TUBAL LIGATION, MULTIPLE D&C'S) Hx of Implantable Prosthesis: No Hx Post-Op Nausea and Vomiting: No Hx Cancer Surgery: No Hx Thoracic Surgery: No Hx Orthopedic: No Hx Urinary Tract Surgery: No Family History None Social History Smoking Status: Never Smoker Hx Substance Use: No Hx Alcohol Use: No Allergies Coded Allergies: Penicillins (Verified Allergy, Severe, "swells up and stops breathing", ) Azithromycin (Verified Allergy, Intermediate, rash, 10/30/17) Current Medications Reported Home Medications Medications Dose Route/Sig Max Daily Dose Days Date Category Zofran (Ondansetron HCl) 4 Mg Tab 4 Mg PO Q8H PRN 12/16/16 Reported Protonix (Pantoprazole Sodium) 40 Mg Tab 40 Mg PO BID 12/16/16 Reported Ferrex 150 (Polysaccharide Iron Complex) 150 Mg Cap 1 Cap PO HS 12/16/16 Reported Ventolin Hfa (Albuterol) 200 Puffs/10017 Mcg Aers 1 Puffs INH Q6H PRN 09/23/16 Reported Vital Signs Weight (Kilograms): 132.27 Height (Feet): 5 Height (Inches): 9 Date Time Temp Pulse Resp B/P (MAP) Pulse Ox O2 Delivery O2 Flow Rate FiO2 10/31/17 10:51 36.6 78 20 162/108 (126) 97 Room Air Physical Exam General Appearance: WD/WN, no apparent distress Respiratory/Chest: Auscultation: breath sounds normal Cardiovascular: Heart Auscultation: RRR Abdomen: Bowel Sounds: normal Inspection & Palpation: soft, non-distended, no tenderness, guarding & rebound Assessment and Plan Assessment: 41 yo CF who presents for EGD secondary to Eosinophilic esophagitis. Plan: Proceed with EGD.
--- NOTE | 2017-10-31 12:33 | GI REPORT ---
Procedure Date: 10/31/2017 12:03 PM Procedure: Upper GI endoscopy Indications: Follow-up of eosinophilic esophagitis Medicines: Monitored Anesthesia Care Complications: No immediate complications. Estimated Blood Loss: Estimated blood loss: none. Procedure: Pre-Anesthesia Assessment: - Prior to the procedure, a History and Physical was performed, and patient medications and allergies were reviewed. The patient's tolerance of previous anesthesia was also reviewed. The risks and benefits of the procedure and the sedation options and risks were discussed with the patient. All questions were answered, and informed consent was obtained. Prior Anticoagulants: The patient has taken no previous anticoagulant or antiplatelet agents. ASA Grade Assessment: III - A patient with severe systemic disease. After reviewing the risks and benefits, the patient was deemed in satisfactory condition to undergo the procedure. After obtaining informed consent, the endoscope was passed under direct vision. Throughout the procedure, the patient's blood pressure, pulse, and oxygen saturations were monitored continuously. The scope was introduced through the mouth, and advanced to the second part of duodenum. The upper GI endoscopy was accomplished without difficulty. The patient tolerated the procedure well. Findings: Mucosal changes including longitudinal furrows and stenosis were found in the entire esophagus. A guidewire was placed and the scope was withdrawn. Dilation was performed with a Savary dilator with no resistance at 51 Fr. The dilation site was examined and showed moderate improvement in luminal narrowing. The entire examined stomach was normal. The examined duodenum was normal. Impression: - Esophageal mucosal changes consistent with eosinophilic esophagitis. Dilated. - Normal stomach. - Normal examined duodenum. - No specimens collected. Recommendation: - Resume previous diet. - Continue present medications. - Return to GI office as previously scheduled. Leopoldo Angelo, DO 10/31/2017 12:33:28 PM This report has been signed electronically. Note Initiated On: 10/31/2017 12:03 PM I attest to the content of the Intraoperative Record and orders documented therein, exceptions below
--- NOTE | 2017-10-31 12:34 | Discharge Instructions ---
Endoscopy Patient Instructions Date / Procedure(s) Performed Oct 31, 2017. EGD Allergy Information Coded Allergies: Penicillins (Verified Allergy, Severe, "swells up and stops breathing", ) Azithromycin (Verified Allergy, Intermediate, rash, 10/30/17) Discharge Date / Findings Oct 31, 2017. Eosinophilic esophagitis s/p dilation Medication Instructions OK to resume all medications today as prescribed Reported Home Medications Medications Dose Route/Sig Max Daily Dose Days Date Category Zofran (Ondansetron HCl) 4 Mg Tab 4 Mg PO Q8H PRN 12/16/16 Reported Protonix (Pantoprazole Sodium) 40 Mg Tab 40 Mg PO BID 12/16/16 Reported Ferrex 150 (Polysaccharide Iron Complex) 150 Mg Cap 1 Cap PO HS 12/16/16 Reported Ventolin Hfa (Albuterol) 200 Puffs/30439 Mcg Aers 1 Puffs INH Q6H PRN 09/23/16 Reported Provider Instructions Activity Restrictions - No exercising or heavy lifting for 24 hours. - Do not drink alcohol the day of the procedure. - Do not drive a car or operate machinery until the day after the procedure. - Do not make any important decisions or sign important papers in 24 hours after the procedure. Following Day: - Return to full activity which may include returning to work/school. Diet Start your diet with liquids and light foods (jello, soup, juice, toast). Then eat your usual diet if not nauseated. Treatment For Common After Affects For mild abdominal pain, bloating, or excessive gas: - Rest - Eat lightly - Lie on right side Follow-Up Information Follow-up with DR. Joana BOWERS as scheduled Anesthesia Information What You Should Know You have had a procedure that required some medicine to reduce anxiety and discomfort. This treatment is called moderate sedation. After receiving the treatment, you may be sleepy, but you will be able to breathe on your own. The effects of the treatment may last for several hours. Follow these instructions along with Activity/Diet recommendations noted above: * Do NOT do anything where dizziness or clumsiness would be dangerous. * Rest quietly at home today, then you can be up and about tomorrow. * Have a responsible person stay with you the rest of today. * You may have had an I.V. today. If so, you may take the dressing off later today. Recommendations Call your doctor if: * Trouble breathing * Continuous vomiting for more than 24 hours * Temperature above 101 degrees * Severe abdominal pain or bloating * Pain not relieved by pain medicine ordered * There is increased drainage or redness from any incision * A large amount of rectal bleeding greater than 2-3 tablespoons. (If you had a polyp/s removed or have hemorrhoids, a small amount of blood - from the rectum is to be expected.) * You have any unanswered questions or concerns. IN THE EVENT OF A SERIOUS EMERGENCY, GO TO THE NEAREST EMERGENCY ROOM Your discharge instructions were prepared by provider Leopoldo Angelo. Patient Instructions Signature Page Kristen Carcamo Patient (or Guardian) Signature/Date: I have read and understand the instructions given to me by my caregivers. Caregiver/RN/Doctor Signature/Date: The above-named patient and/or guardian has received patient instructions on this date. + Original Patient Signature Page (only) stays with chart. Please make copy for patient.
--- NOTE | 2017-10-31 12:38 | Anesthesiology Progress Note ---
Anesthesia Post Op Note Date & Time Oct 31, 2017 at 12:38 Vital Signs Pain Intensity: 0 Vital Signs Past 12 Hours Date Time Temp Pulse Resp B/P (MAP) Pulse Ox O2 Delivery O2 Flow Rate FiO2 10/31/17 10:51 36.6 78 20 162/108 (126) 97 Room Air Notes Mental Status: alert / awake / arousable, participated in evaluation Pt Amnestic to Procedure: Yes Nausea / Vomiting: adequately controlled Pain: adequately controlled Airway Patency, RR, SpO2: stable & adequate BP & HR: stable & adequate Hydration State: stable & adequate Anesthetic Complications: no major complications apparent
[2017-10-31 12:57] VITALS: BP 131/99; PULSE 76; O2SAT 96
== END | disposition home or self-care (01) ==
LOC: C.GI 10:08
PROVIDERS: ATTEND Internal Medicine
DX: K20.0 Eosinophilic esophagitis (principal); Z80.0 Family history of malignant neoplasm of digestive organs; Z88.1 Allergy status to other antibiotic agents

== ENCOUNTER 2017-11-17 09:56 | Observation (INO) | payer OTHER ==
[2017-11-13 10:56] VITALS: Ht 174 cm; Wt 133.4 kg
[2017-11-13 11:28] LABS: BASO % 0.1 %; BASO ABS # 0.02 K/uL (0-0.2); EOS % 2.6 %; EOS ABS # 0.42 K/uL (0-0.5); HEMATOCRIT 39.6 % (37-47); HEMOGLOBIN 12.2 g/dL (12.0-16.0); IG# 0.07 K/uL (0.00-0.02); LYMPH % 24.3 %; LYMPH ABS # 3.88 K/uL (1.2-3.4); MEAN CELL VOLUME 70.7 fL (80-100); MEAN CORPUSCULAR HEMOGLOBIN 21.8 pg (25-34); MEAN CORPUSCULAR HGB CONC 30.8 g/dl (32-36); MEAN PLATELET VOLUME 9.2 fL (7.4-10.4); MONO % 2.8 %; MONO ABS # 0.44 K/uL (0.11-0.59); NEUT % 69.8 %; NEUT ABS # 11.13 K/uL (1.4-6.5); PLATELET COUNT 422 K/uL (130-400); RED CELL DISTRIBUTION WIDTH CV 19.6 % (11.5-14.5); RED CELL DISTRIBUTION WIDTH SD 50.3 fL (36.4-46.3); WHITE BLOOD COUNT 15.96 K/uL (4.8-10.8)
--- NOTE | 2017-11-13 11:30 | PAT Medication Instructions ---
Service Date Nov 13, 2017. Current Home Medication List Acetaminophen (Tylenol), 2 TAB PO UD PRN for PRN Albuterol Hfa (Ventolin Hfa), 1 PUFFS INH Q6H PRN for SOB/Wheezing Ibuprofen (Motrin), 800 MG PO UD PRN for Pain Ondansetron Hcl (Zofran), 4 MG PO Q8H PRN for Nausea Pantoprazole (Protonix), 40 MG PO BID Polysaccharide Iron Complex (Ferrex 150), 1 CAP PO HS Medication Instructions For Your Scheduled Surgery -Contact your surgeon if you plan on using: Ibuprofen (Motrin), 800 MG PO UD PRN for Pain - Take the following medications the morning of surgery with a sip of water: Acetaminophen (Tylenol), 2 TAB PO UD PRN for PRN (if needed, can be taken up to four hours before surgery) Albuterol Hfa (Ventolin Hfa), 1 PUFFS INH Q6H PRN for SOB/Wheezing (if needed, and bring it with yo to the hospital) Ondansetron Hcl (Zofran), 4 MG PO Q8H PRN for Nausea (if needed) Pantoprazole (Protonix), 40 MG PO BID - Take the following medications as scheduled the night before surgery: Acetaminophen (Tylenol), 2 TAB PO UD PRN for PRN (if needed) Albuterol Hfa (Ventolin Hfa), 1 PUFFS INH Q6H PRN for SOB/Wheezing (if needed) Ondansetron Hcl (Zofran), 4 MG PO Q8H PRN for Nausea (if needed) Pantoprazole (Protonix), 40 MG PO BID Polysaccharide Iron Complex (Ferrex 150), 1 CAP PO HS If you have any questions please call us at [phone] or [phone] or [phone]
[2017-11-17] VITALS (7 sets, daily range): BP systolic 113–146; BP diastolic 65–81; PULSE 70–88; TEMP 36.4–36.8; O2SAT 92–98
[~2017-11-17] VITALS: Ht 174 cm; Wt 133.4 kg
[~2017-11-17 09:56] MED LIST changes: +ACET-1256 PO; +CEFAZOLIN 3000MG IV PUSH 22.5 ML IV SCH; +IBUP-1428 PO; +LACTATED RINGER'S 1000ML 1,000 ML IV SCH; -LIDOCAINE HCL 2% 2 ML VIAL (20MG/ML) ONE; -MIDAZOLAM HCL 1 MG/ML 2ML VIAL ONE; -PROPOFOL IV EMULSION 10 MG/ML 20 ML VIAL IV ONE; -SODIUM CHLORIDE 0.9% 500ML 500 ML IV ONE
[2017-11-17] MEDS ORDERED: LARYING-O-JET KIT (LTA) ONE (10:06)
[2017-11-17] MEDS ORDERED: PROPOFOL IV EMULSION 10 MG/ML 20 ML VIAL IV ONE (10:06)
[2017-11-17] MEDS ORDERED: DEXAMETHASONE SOD INJ 4 MG/ML VIAL ONE (10:06)
[2017-11-17] MEDS ORDERED: LIDOCAINE HCL 2% 2 ML VIAL (20MG/ML) ONE (10:06)
[2017-11-17] MEDS ORDERED: ONDANSETRON INJ 2 MG/ML 2 ML VIAL ONE ×2 (10:06→14:26)
[2017-11-17] MEDS ORDERED: MIDAZOLAM HCL 1 MG/ML 2ML VIAL ONE (10:06)
[2017-11-17] MEDS ORDERED: SODIUM CHLORIDE 0.9% INJ 10 ML VIAL ONE (10:07)
[2017-11-17] MEDS ORDERED: FENTANYL CITRATE INJ 50 MCG/1 ML 2 ML VIAL ONE ×3 (10:07→14:44)
[2017-11-17] MEDS ORDERED: HYDROmorphone INJ 2 MG/ML SYR/VIAL ONE (10:07)
[2017-11-17] MEDS ORDERED: BUPIVACAINE 0.5 % 5 MG/1 ML MPF 30ML VIAL ONE (11:33)
[2017-11-17] MEDS ORDERED: METHYLENE BLUE 0.5% 10 ML VIAL ONE (11:33)
--- NOTE | 2017-11-17 11:37 | History & Physical Bridge Note ---
H&P Re-Evaluation Bridge Note: I have examined the patient, reviewed the History & Physical and in the interval since the performance of the History & Physical I have noted the following changes of clinical significance: No changes noted
[2017-11-17] MEDS ORDERED: SCOPOLAMINE 1.5 MG TDSY TD ONE (11:52)
[2017-11-17] MEDS ORDERED: NURSING VERBAL MED ORDER ONE ×2 (12:00→18:45)
[2017-11-17] MEDS ORDERED: KETAMINE HCL INJ 50 MG/ML 10 ML VIAL ONE (12:30)
[2017-11-17] MEDS ORDERED: ACETAMINOPHEN 1000 MG/100 ML IV IV ONE (12:49)
[2017-11-17] MEDS ORDERED: METOCLOPRAMIDE HCL INJ 5 MG/ML 2 ML VIAL ONE (14:26)
[2017-11-17] MEDS ORDERED: TISSEEL FIBRIN SEALANT 4ML TOP ONE (14:40)
--- NOTE | 2017-11-17 14:53 | [facility] Post Operative Brief Note ---
Immediate Operative Summary Operative Date Nov 17, 2017. Pre-Operative Diagnosis Dysfunctional Uterine Bleeding Post-Operative Diagnosis Same as preop Procedure(s) Performed Total Laparoscopic Hysterectomy Bilateral Salpingectomy Robot Assist; Cystoscopy Surgeon Dr. Phoenix Fish Icer Surgeon(s) Dr. Corral Estimated Blood Loss 30 ml Findings Consistent with Post-Op Diagnosis Fluids (cc crystalloids) 1700 Specimens A. Cervix, Uterus, Bilateral Fallopian Tubes Drains Garcia, clear yellow Anesthesia Type General Complication(s) none Disposition Accompanied Pt To Recover: no Disposition: Recovery Room / PACU
[2017-11-17] MEDS ORDERED: PROMETHAZINE HCL INJ 12.5 MG in SODIUM CHLORIDE 0.9% 50ML 50 ML IV PRN ×2 (15:00)
[2017-11-17] MEDS ORDERED: FLUMAZENIL 0.1 MG/1 ML 10 ML VIAL IV PRN (15:00)
[2017-11-17] MEDS ORDERED: OXYCODONE/ACETAMINOPHEN 5-325 TAB PO PRN (15:00)
[2017-11-17] MEDS ORDERED: EpHEDrine SULFATE INJ 50 MG/ML AMP IV PRN (15:00)
[2017-11-17] MEDS ORDERED: LABETALOL HCL IV 5 MG/ML 20ML IV PRN (15:00)
[2017-11-17] MEDS ORDERED: MAGNESIUM HYDROXIDE SUSP 30 ML UDC PO PRN (15:00)
[2017-11-17] MEDS ORDERED: ONDANSETRON INJ 2 MG/ML 2 ML VIAL IV PRN ×2 (15:00)
[2017-11-17] MEDS ORDERED: BISACODYL 10 MG SUPP PR PRN (15:00)
[2017-11-17] MEDS ORDERED: NALOXONE HCL 0.4 MG/1 ML VIAL/CARP IV PRN (15:00)
[2017-11-17] MEDS ORDERED: ATROPINE SULFATE 0.1 MG/ML 5ML SYR IV PRN (15:00)
[2017-11-17] MEDS: HYDROmorphone INJ 0.5 MG/0.5 ML SYR IV PRN ×3 (15:16→15:37)
[2017-11-17] MEDS ORDERED: OXYC-57 PO (15:24)
[2017-11-17] MEDS ORDERED: IV FLUIDS COMPLETED PRN (16:00)
--- NOTE | 2017-11-17 16:01 | Anesthesiology Progress Note ---
Anesthesia Post Op Note Date & Time Nov 17, 2017 at 16:01 Vital Signs Pain Intensity: 3 Vital Signs Past 12 Hours Date Time Temp Pulse Resp B/P (MAP) Pulse Ox O2 Delivery O2 Flow Rate FiO2 11/17/17 15:50 59 14 118/70 93 Nasal Cannula 4 11/17/17 15:40 60 14 119/77 94 Nasal Cannula 4 11/17/17 15:30 36.5 75 16 123/85 96 Nasal Cannula 4 11/17/17 15:20 63 12 130/83 97 Oxymask 15 11/17/17 15:10 76 14 132/82 95 Oxymask 15 11/17/17 15:04 36.0 81 18 126/88 93 Oxymask 15 11/17/17 10:26 36.8 88 18 146/81 (102) 98 Room Air Notes Mental Status: alert / awake / arousable, participated in evaluation Pt Amnestic to Procedure: Yes Nausea / Vomiting: adequately controlled Pain: adequately controlled Airway Patency, RR, SpO2: stable & adequate BP & HR: stable & adequate Hydration State: stable & adequate Anesthetic Complications: no major complications apparent
[2017-11-17] MEDS ORDERED: MoRPHine SULFATE 2 MG/ML CARP IV PRN (19:00)
--- NOTE | 2017-11-17 20:47 | OPERATIVE REPORT ---
DATE OF OPERATION: 11/17/2017 PREOPERATIVE DIAGNOSIS: Dysfunctional uterine bleeding. POSTOPERATIVE DIAGNOSIS: Dysfunctional uterine bleeding. PROCEDURES PERFORMED: Total laparoscopic hysterectomy, bilateral salpingectomy with robotic assist and cystoscopy. SURGEON: Irma Phoenix DO COMPUTER APPLICATIONS INSTRUCTOR: Ricci Corral MD ESTIMATED BLOOD LOSS: 30 mL FINDINGS: Consistent with postoperative diagnosis, normal-appearing uterus, tubes, and ovaries. FLUIDS: 1700 mL SPECIMENS: Cervix, uterus, bilateral fallopian tubes all-in-1 specimen. DRAINS: Garcia, clear yellow. ANESTHESIA: General. COMPLICATIONS: None. DISPOSITION: Stable and good to recovery area. INDICATIONS FOR PROCEDURE: The patient is a 42-year-old G4, P4 with a history of endometrial hyperplasia diagnosed by Dr. Wilde and treated with Mirena IUD; however, this Mirena IUD caused pelvic cramping and irregular bleeding. She has tried multiple hormonal methods for treatment of heavy menses and has not been happy with any of these. She is not interested in another IUD. When period are at their heaviest, patient feels weak and dizzy and feels like this severely impacts her life. She has completed childbearing and has a history of a tubal ligation and is ready for permanent treatment. DESCRIPTION OF PROCEDURE: The patient was seen in the preoperative holding area, where risks; benefits; alternatives to surgery were reviewed. She elected to proceed with the case. She had previously signed informed consent in the office under no duress. She was taken to the operating room, where general anesthesia was introduced. She was given Ancef preoperatively. Timeout was confirmed. She was prepared and draped in the usual sterile fashion. A weighted speculum was placed in the vagina. The cervix was visualized and the anterior lip was grasped with a single tooth tenaculum and an Allis clamp due to vaginal wall prolapse and difficulty grasping the cervix. A stitch was placed through this, the anterior lip of the cervix to suture secure the uterine manipulator. This was then placed. A Garcia catheter was placed and gloves and gown were changed and attention was turned to the abdomen. A supraumbilical incision was made with a scalpel and using the open Vika technique the supraumbilical trocar was inserted. The camera was inserted to confirm intraabdominal placement. CO2 gas was placed on high flow. The camera was reinserted and the patient was placed in steep Trendelenburg position. Bilateral trocars were placed for a total of 5 under direct visualization. This was 3 robot arms and one assistant fitness manager port in addition to the camera port. The robot was docked. First the bilateral salpingectomy was performed. The left fallopian tube was grasped and using hot scissors this was transected from the mesosalpinx. In a similar fashion, the right fallopian tube was transected. Next, the left uteroovarian ligament was coagulated and transected followed by a similar procedure for the round ligament on the right side of the uterus. The right uteroovarian ligament and right round ligament were transected in a similar fashion. The bilateral sides of the uterus were skeletonized and a large amount of adhesive disease was noted from the patient's prior section x1 adhesing bladder to the anterior aspect of the uterus. This was carefully taken down transecting the uterine adhesions in the anterior leaf of the broad ligament. Bilateral uterine vessels were coagulated and transected. Next, the uterus and cervix were amputated from the vaginal cuff in a circumferential incision. The uterus was delivered through the vagina. There were multiple small bleeding vessels on the vaginal cuff. These were coagulated to obtain excellent hemostasis. The vaginal cuff was reapproximated using V-Loc suture in a running stitch. A negative pressure test was performed and excellent hemostasis was observed. Next, attention was turned to the bladder and cystoscopy was performed. The Garcia catheter was removed. The cystoscope was placed inside the bladder. The bladder was visualized and no sutures or injury to the bladder was noted. Bilateral ureteral orifices were noted and methylene blue assisted in the visualization of bilateral urine jets. The cystoscope was removed. Garcia catheter was replaced. Attention was turned back to the pelvis, where TISSEEL anticoagulant was applied to all raw surfaces. Again, excellent hemostasis was noted. The robot was undocked and all trocars were removed. The gas was desufflated from the abdomen. The supraumbilical incision was reapproximated using 0 Vicryl at the fascial layer and all skin layers were reapproximated using 4-0 Vicryl in a subcuticular stitch. Dermabond glue was applied. The patient tolerated the procedure well. All sponge, instrument, and needle counts were correct at the conclusion of the case. The patient was taken to the recovery area in stable and good condition. I attest to the content of the Intraoperative Record and any orders documented therein. Any exceptions are noted below. MTDD
[2017-11-17 20:56] LABS: HEMATOCRIT 36.5 % (37-47); HEMOGLOBIN 11.1 g/dL (12.0-16.0)
[2017-11-17] MEDS: DOCUSATE SODIUM 100 MG CAP PO SCH (21:00)
[2017-11-17] MEDS: IBUPROFEN 600 MG TAB PO PRN (23:05)
[2017-11-17] MEDS: OXYCODONE/ACETAMINOPHEN 5-325 TAB PO PRN (23:05)
[2017-11-18 04:00] VITALS: BP 112/74; PULSE 80; TEMP 37.1; O2SAT 94
[2017-11-18] MEDS: IBUPROFEN 600 MG TAB PO PRN ×2 (05:47→13:35)
[2017-11-18] MEDS: OXYCODONE/ACETAMINOPHEN 5-325 TAB PO PRN ×2 (05:48→13:35)
[2017-11-18] MEDS: SIMETHICONE 80 MG CHEW PO PRN ×2 (06:02→11:14)
[2017-11-18 06:48] LABS: BASO ABS # 0.01 K/uL (0-0.2); IG# 0.08 K/uL (0.00-0.02); LYMPH % 11.2 %; LYMPH ABS # 2.39 K/uL (1.2-3.4); MEAN CORPUSCULAR HEMOGLOBIN 22.3 pg (25-34); MEAN CORPUSCULAR HGB CONC 31.4 g/dl (32-36); MONO % 2.8 %; NEUT % 85.6 %; PLATELET COUNT 435 K/uL (130-400); RED CELL DISTRIBUTION WIDTH CV 19.5 % (11.5-14.5); WHITE BLOOD COUNT 21.28 K/uL (4.8-10.8)
[2017-11-18 07:19] LABS: CREATININE 1.33 mg/dl (0.60-1.20)
[2017-11-18 07:30] VITALS: BP 98/55; PULSE 74; TEMP 36.9; O2SAT 94
[2017-11-18] MEDS ORDERED: LACTATED RINGER'S 1000ML 500 ML IV SCH ×2 (09:15→10:15)
--- NOTE | 2017-11-18 09:26 | OB/GYN Progress Note ---
CAMPAIGN MARKETING SPECIALIST Progress Note Date of Service Nov 18, 2017. Subjective conversation w/ patient, physical exam Ambulation: ambulating normally Voiding: no voiding problems Diet Tolerance: Regular Diet Pain: controlled Review of Systems Constitutional: No problem reported Respiratory: No problem reported Cardiac: No problem reported Breast: No problem reported Abdomen: No problem reported Female : No problem reported Objective Vital Signs Date Time Temp Pulse Resp B/P (MAP) Pulse Ox O2 Delivery O2 Flow Rate FiO2 11/18/17 07:30 36.9 74 18 98/55 (69) 94 Room Air 11/18/17 07:30 94 Room Air 11/18/17 04:00 37.1 80 18 112/74 (87) 94 Room Air 0.0 11/17/17 23:00 97 Nasal Cannula 2.0 11/17/17 23:00 36.8 88 18 115/75 (88) 97 Nasal Cannula 2.0 11/17/17 19:30 36.5 78 18 127/81 (96) 95 Nasal Cannula 2.0 11/17/17 18:10 36.7 70 18 123/79 (94) 96 Nasal Cannula 2.0 11/17/17 17:10 36.4 76 16 135/69 (91) 94 Nasal Cannula 2.0 11/17/17 16:40 36.5 77 16 124/72 (89) 95 Nasal Cannula 2.0 11/17/17 16:10 92 Nasal Cannula 2.0 11/17/17 16:10 93 Room Air 11/17/17 16:10 36.6 78 16 113/65 (81) 92 Nasal Cannula 2.0 11/17/17 15:50 59 14 118/70 93 Nasal Cannula 4 11/17/17 15:40 60 14 119/77 94 Nasal Cannula 4 11/17/17 15:30 36.5 75 16 123/85 96 Nasal Cannula 4 11/17/17 15:20 63 12 130/83 97 Oxymask 15 11/17/17 15:10 76 14 132/82 95 Oxymask 15 11/17/17 15:04 36.0 81 18 126/88 93 Oxymask 15 11/17/17 10:26 36.8 88 18 146/81 (102) 98 Room Air Physical Exam General Appearance: WELL-APPEARING, NO APPARENT DISTRESS Respiratory/Chest: no respiratory distress Cardiovascular: regular rate, rhythm Abdomen: non tender, soft Incision Description: Clean, Dry & Intact Extremities: normal inspection Laboratory Results Last 24 Hours Test 11/17/17 10:18 11/17/17 20:33 11/18/17 06:28 Bedside Urine Test NEG Hemoglobin 11.1 g/dL 11.0 g/dL Hematocrit 36.5 % 35.0 % White Blood Count 21.28 K/uL Red Blood Count 4.93 M/uL Mean Corpuscular Volume 71.0 fL Mean Corpuscular Hemoglobin 22.3 pg Mean Corpuscular Hemoglobin Concent 31.4 g/dl Platelet Count 435 K/uL Mean Platelet Volume 9.0 fL Neutrophils (%) (Auto) 85.6 % Lymphocytes (%) (Auto) 11.2 % Monocytes (%) (Auto) 2.8 % Eosinophils (%) (Auto) 0.0 % Basophils (%) (Auto) 0.0 % Neutrophils # (Auto) 18.20 K/uL Lymphocytes # (Auto) 2.39 K/uL Monocytes # (Auto) 0.60 K/uL Eosinophils # (Auto) 0.00 K/uL Basophils # (Auto) 0.01 K/uL RDW Standard Deviation 51.0 fL RDW Coefficient of Variation 19.5 % Immature Granulocyte % (Auto) 0.4 % Immature Granulocyte # (Auto) 0.08 K/uL Sodium Level 137 mmol/L Potassium Level 4.0 mmol/L Chloride Level 106 mmol/L Carbon Dioxide Level 24 mmol/L Anion Gap 7.0 mmol/L Blood Urea Nitrogen 14 mg/dl Creatinine 1.33 mg/dl Est Creatinine Clear Calc Drug Dose 82.0 ml/min Estimated GFR () 57.8 Estimated GFR (Non- 49.9 BUN/Creatinine Ratio 10.8 Random Glucose 119 mg/dl Calcium Level 9.0 mg/dl Assessment and Plan Post-Op Day Number: 1 Continue Routine Care: POD#1 s/p robotic total hysterectomy with bilateral salpingectomy, cystoscopy. Patient is feeling well, pain controlled, ambulating, eating/drinking ok. Urine output since byrd removal 225 (in past 8 hours). Creatinine has increased from 1.0 preop to 1.33 today. Given cystoscopy was normal yesterday with normal bilateral urine flow through ureters, and bilateral ureters were visualized peristalsing during surgery, I think urological injury is unlikely, however will repeat creatinine at lunchtime today to be sure. Most likely, patient has somewhat decreased kidney function to begin with, and renal function declined further with postop pain medications. Will also give 500cc bolus of IV LR. I discussed the above with patient, and will await labs. If creatinine elevated , will plan for IVP.
[2017-11-18] MEDS: DOCUSATE SODIUM 100 MG CAP PO SCH (11:14)
[2017-11-18 11:38] VITALS: BP 106/58; PULSE 60; TEMP 37; O2SAT 95
[2017-11-18 13:09] LABS: CALCIUM 8.8 mg/dl (8.5-10.1); CREATININE 1.04 mg/dl (0.60-1.20); POTASSIUM 3.9 mmol/L (3.5-5.1)
--- NOTE | 2017-11-18 13:17 | Discharge Instructions ---
Discharge Instructions Date of Service Nov 18, 2017. Admission Reason for Admission: Heavy Menses Discharge Discharge Diagnosis / Problem: s/p hysterectomy Discharge Goals Goal(s): Routine recovery after surgery Activity Recommendations Activity Limitations: per Instructions/Follow-up section . Instructions / Follow-Up Instructions / Follow-Up ACTIVITY RECOMMENDATIONS: Activity: * During the first week at home, your activity should be similar to that done at the hospital prior to discharge. Your primary activity is in-house walking interspersed with rest periods. Preparing lunch for yourself is acceptable. You may go up and down stairs. Try to stay up progressively longer periods of time to help regain your strength more quickly. * During the second week at home, activities should include some meal preparation, walking to strengthen abdominal muscles and riding in a car. You may drive a car and make brief shopping trips at the end of the second week at home. * Lifting should not exceed 15-20 pounds during the first month after surgery. * Sexual intercourse can usually be resumed about 12 weeks after surgery depending on findings at your post-operative examinations. Bathing: * Showers or baths are permissible. Sitting in four to six inches of hot water (sitz bath) is often comforting after vaginal surgery and is permitted at any time. A sitz bath at bedtime can also assist in a better night's sleep. SPECIAL CARE INSTRUCTIONS: The major discomforts related to surgery have now passed and progressive improvement will occur. The tight uncomfortable feeling in the abdominal, pelvic and back area will gradually fade away. Fatigue may take the longest to disappear; your energy level may take several weeks to return to normal. At times you may become frustrated or impatient over not feeling as well or doing as much as you'd like , but this is a normal reaction to surgery and will pass with time. Vaginal Discharge: * Odorous, blood-tinged or brownish discharge may be present for one to three weeks after surgery. * Pads should be used and not tampons. * Stitches may be passed vaginally. * Bleeding may be somewhat increased approximately two weeks after surgery, which is related to the stitches dissolving. * If bleeding becomes free flowing, notify our office at . Bowel Care: * Constipation after surgery is very common. Foods that promote bowel activity (bran, fruit, prune juice) should be included in your diet. * A capsule, DIALOSE-PLUS, can be purchased without a prescription and can be taken daily (one or two capsules) to assist in promoting bowel activity. * If you have had vaginal surgery involving your rectum, we will discuss this when discharged from the hospital. Catheter or "CYSTO-CATH": * Approximately 80% of "bladder repair" patients will require a catheter at home until the swelling recedes. * Some patients require days to weeks before adequate bladder emptying will resume. * In general, after each time you urinate, un-clamp the catheter again. Measure the amount in the bag. When this is consistently below 100cc, call the office to make an appointment to have the catheter removed. Temperature: * Any fever above 100.4 degrees F should be reported to our office at . FOLLOW-UP: Post-Operative Appointments: * Individual instructions will have been given about the timing of your first examination, but this is usually at the end of the second week home. * You will need to call the office at soon after discharge to make the appointment for your post-op check-up if it has not already been scheduled. * Additional information regarding activity, sexual intercourse and when to return to work will be given at this appointment. WE WISH YOU A SPEEDY RECOVERY! Current Hospital Diet Patient's current hospital diet: Regular Diet Discharge Diet Recommended Diet: Regular Diet Procedures Procedures Performed: Total Laparoscopic Hysterectomy Bilateral Salpingectomy Robot Assist; Cystoscopy Pending Studies Studies pending at discharge: yes List of pending studies: pathology Medical Emergencies . Who to Call and When: Medical Emergencies: If at any time you feel your situation is an emergency, please call 911 immediately. . Non-Emergent Contact Non-Emergency issues call your: Primary Care Provider, [employer] Salesperson . . "Provider Documentation" section prepared by Irma Phoenix. . [place] Drug Monitoring Program Search Results: patient reviewed within database
--- NOTE | 2017-11-18 13:19 | Progress Note ---
Progress Note Date of Service Nov 18, 2017. Progress Note Patient is feeling well. Repeat creatinine has decreased, now 1.04. Voiding well. 13cc postvoid residual. Will plan to repeat creatinine this week as outpatient. OK for discharge home.
[2017-11-18 14:05] VITALS: BP 106/58; PULSE 60; TEMP 37; O2SAT 95
== END 2017-11-18 14:05 | disposition home or self-care (01) ==
LOC: C.ACU 09:56 → C.MS4N 14:55
PROVIDERS: ADMIT Obstetrics & Gynecology; ATTEND Obstetrics & Gynecology
DX: N93.8 Other specified abnormal uterine and vaginal bleeding (principal); J45.909 Unspecified asthma, uncomplicated; K21.9 Gastro-esophageal reflux disease without esophagitis; K31.84 Gastroparesis; I10 Essential (primary) hypertension; D50.9 Iron deficiency anemia, unspecified; E66.01 Morbid (severe) obesity due to excess calories; Z68.41 Body mass index [BMI] 40.0-44.9, adult; Z88.0 Allergy status to penicillin; Z90.49 Acquired absence of other specified parts of digestive tract; Z83.3 Family history of diabetes mellitus; Z82.49 Family history of ischemic heart disease and other diseases of the circulatory system
CPT/HCPCS: 58571; S2900

== ENCOUNTER → 2017-11-21 | Outpatient (CLI) | payer OTHER ==
[~2017-11-21] MED LIST changes: -CEFAZOLIN 3000MG IV PUSH 22.5 ML IV SCH; -LACTATED RINGER'S 1000ML 1,000 ML IV SCH; +OXYC-57 PO
[2017-11-21 14:31] LABS: CREATININE 0.99 mg/dl (0.60-1.20)
== END | disposition home or self-care (01) ==
LOC: C.LABPBG 08:37
PROVIDERS: ATTEND Obstetrics & Gynecology
DX: R79.89 Other specified abnormal findings of blood chemistry (principal)

== ENCOUNTER → 2017-11-22 | Outpatient (CLI) | payer OTHER | END | disposition home or self-care (01) | LOC: C.LABPBG 13:29 | PROVIDERS: ATTEND Obstetrics & Gynecology | DX: R39.9 Unspecified symptoms and signs involving the genitourinary system (principal) ==

== ENCOUNTER → 2017-11-24 | Outpatient (CLI) | payer OTHER | END | disposition home or self-care (01) | LOC: C.LABPBG 11:53 | PROVIDERS: ATTEND Obstetrics & Gynecology | DX: R39.9 Unspecified symptoms and signs involving the genitourinary system (principal) ==

== ENCOUNTER → 2018-03-16 | Outpatient (CLI) | payer OTHER ==
[~2018-03-16] MED LIST changes: +DOXY-369 PO; -OXYC-57 PO; +PRED20TA2 PO
[2018-03-16 12:30] LABS: BASO % 0.2 %; BASO ABS # 0.03 K/uL (0-0.2); EOS % 2.2 %; EOS ABS # 0.29 K/uL (0-0.5); HEMATOCRIT 38.9 % (37-47); HEMOGLOBIN 12.1 g/dL (12.0-16.0); IG# 0.03 K/uL (0.00-0.02); LYMPH % 27.8 %; MEAN CELL VOLUME 71.8 fL (80-100); MEAN CORPUSCULAR HEMOGLOBIN 22.3 pg (25-34); MEAN CORPUSCULAR HGB CONC 31.1 g/dl (32-36); MEAN PLATELET VOLUME 9.6 fL (7.4-10.4); MONO % 3.2 %; MONO ABS # 0.42 K/uL (0.11-0.59); NEUT % 66.4 %; NEUT ABS # 8.84 K/uL (1.4-6.5); PLATELET COUNT 407 K/uL (130-400); RED CELL DISTRIBUTION WIDTH CV 18.4 % (11.5-14.5); RED CELL DISTRIBUTION WIDTH SD 47.9 fL (36.4-46.3); WHITE BLOOD COUNT 13.31 K/uL (4.8-10.8)
== END | disposition home or self-care (01) ==
LOC: C.LABPBG 07:46
PROVIDERS: ATTEND Nurse Practitioner Family
DX: R53.83 Other fatigue (principal); R61 Generalized hyperhidrosis; R70.0 Elevated erythrocyte sedimentation rate; R79.82 Elevated C-reactive protein (CRP)

== ENCOUNTER → 2018-03-21 | Day surgery (SDC) | payer OTHER ==
[2018-03-19 11:17] VITALS: Ht 174 cm; Wt 131.4 kg
[~2018-03-21] VITALS: Ht 174 cm; Wt 131.4 kg
[~2018-03-21] MED LIST changes: +LIDOCAINE HCL 2% 2 ML VIAL (20MG/ML) ONE; -POLY150C4 PO; -PRED20TA2 PO; +PROPOFOL IV EMULSION 10 MG/ML 20 ML VIAL ONE; +SODIUM CHLORIDE 0.9% 500ML 500 ML IV ONE
--- NOTE | 2018-03-21 10:57 | Endo History and Physical ---
History & Physical Date of Service: Mar 21, 2018. Chief Complaint: Dysphagia Referring Physician: Dr. Misael Davis History of Present Illness 42 yo CF who presents for EGD secondary to dysphagia. Past Surgical History Hx Cardiac Surgery: No Hx Internal Defibrillator: No Hx Pacemaker: No Hx Abdominal Surgery: Yes (MICHEL, , TUBAL LIGATION, MULTIPLE D&C'S, HYSTERECTOMY) Hx of Implantable Prosthesis: No Hx Post-Op Nausea and Vomiting: Yes Hx Cancer Surgery: No Hx Thoracic Surgery: No Hx Orthopedic: No Hx Urinary Tract Surgery: No Family History None Social History Smoking Status: Never Smoker Hx Substance Use: No Hx Alcohol Use: No Allergies Coded Allergies: Penicillins (Verified Allergy, Severe, "swells up and stops breathing", ) Azithromycin (Verified Allergy, Intermediate, rash, 03/19/18) Adhesives (Verified Adverse Reaction, Unknown, RASH - SEE NOTES BELOW, ) WITH HALTER MONITOR HAD BLISTERS UNDER THE PADS Current Medications Reported Home Medications Medications Dose Route/Sig Max Daily Dose Days Date Category Doxycycline (Doxycycline (Monohydrate)) 100 Mg Cap 1 Cap PO BID 03/19/18 Reported Motrin (Ibuprofen) 800 Mg Tab 800 Mg PO UD PRN 11/13/17 Reported Tylenol (Acetaminophen) 500 Mg Tab 2 Tab PO UD PRN 11/13/17 Reported Zofran (Ondansetron HCl) 4 Mg Tab 4 Mg PO Q8H PRN 12/16/16 Reported Protonix (Pantoprazole Sodium) 40 Mg Tab 40 Mg PO BID 12/16/16 Reported Ventolin Hfa (Albuterol) 200 Puffs/62328 Mcg Aers 1 Puffs INH Q6H PRN 09/23/16 Reported Vital Signs Weight (Kilograms): 131.36 Height (Feet): 5 Height (Inches): 8.5 Date Time Temp Pulse Resp B/P (MAP) Pulse Ox O2 Delivery O2 Flow Rate FiO2 03/21/18 09:55 36.8 70 18 132/89 (103) 97 Room Air Physical Exam General Appearance: WD/WN, no apparent distress Respiratory/Chest: Auscultation: breath sounds normal Cardiovascular: Heart Auscultation: RRR Abdomen: Bowel Sounds: normal Inspection & Palpation: soft, non-distended, no tenderness, guarding & rebound Assessment and Plan Assessment: 42 yo CF who presents for EGD secondary to dysphagia. Plan: Proceed with EGD
[2018-03-21 11:56] VITALS: BP 141/85; PULSE 73; O2SAT 97
--- NOTE | 2018-03-21 11:58 | Discharge Instructions ---
Endoscopy Patient Instructions Date / Procedure(s) Performed Mar 21, 2018. EGD Allergy Information Coded Allergies: Penicillins (Verified Allergy, Severe, "swells up and stops breathing", ) Azithromycin (Verified Allergy, Intermediate, rash, 03/19/18) Adhesives (Verified Adverse Reaction, Unknown, RASH - SEE NOTES BELOW, ) WITH HALTER MONITOR HAD BLISTERS UNDER THE PADS Discharge Date / Findings Mar 21, 2018. Esophageal stricture s/p dilation Hiatal hernia Medication Instructions OK to resume all medications today as prescribed Reported Home Medications Medications Dose Route/Sig Max Daily Dose Days Date Category Doxycycline (Doxycycline (Monohydrate)) 100 Mg Cap 1 Cap PO BID 03/19/18 Reported Motrin (Ibuprofen) 800 Mg Tab 800 Mg PO UD PRN 11/13/17 Reported Tylenol (Acetaminophen) 500 Mg Tab 2 Tab PO UD PRN 11/13/17 Reported Zofran (Ondansetron HCl) 4 Mg Tab 4 Mg PO Q8H PRN 12/16/16 Reported Protonix (Pantoprazole Sodium) 40 Mg Tab 40 Mg PO BID 12/16/16 Reported Ventolin Hfa (Albuterol) 200 Puffs/17396 Mcg Aers 1 Puffs INH Q6H PRN 09/23/16 Reported Provider Instructions Activity Restrictions - No exercising or heavy lifting for 24 hours. - Do not drink alcohol the day of the procedure. - Do not drive a car or operate machinery until the day after the procedure. - Do not make any important decisions or sign important papers in 24 hours after the procedure. Following Day: - Return to full activity which may include returning to work/school. Diet Start your diet with liquids and light foods (jello, soup, juice, toast). Then eat your usual diet if not nauseated. Treatment For Common After Affects For mild abdominal pain, bloating, or excessive gas: - Rest - Eat lightly - Lie on right side Follow-Up Information Follow-up with Dr. Misael Davis as scheduled Anesthesia Information What You Should Know You have had a procedure that required some medicine to reduce anxiety and discomfort. This treatment is called moderate sedation. After receiving the treatment, you may be sleepy, but you will be able to breathe on your own. The effects of the treatment may last for several hours. Follow these instructions along with Activity/Diet recommendations noted above: * Do NOT do anything where dizziness or clumsiness would be dangerous. * Rest quietly at home today, then you can be up and about tomorrow. * Have a responsible person stay with you the rest of today. * You may have had an I.V. today. If so, you may take the dressing off later today. Recommendations Call your doctor if: * Trouble breathing * Continuous vomiting for more than 24 hours * Temperature above 101 degrees * Severe abdominal pain or bloating * Pain not relieved by pain medicine ordered * There is increased drainage or redness from any incision * A large amount of rectal bleeding greater than 2-3 tablespoons. (If you had a polyp/s removed or have hemorrhoids, a small amount of blood - from the rectum is to be expected.) * You have any unanswered questions or concerns. IN THE EVENT OF A SERIOUS EMERGENCY, GO TO THE NEAREST EMERGENCY ROOM Your discharge instructions were prepared by provider Leopoldo Angelo. Patient Instructions Signature Page Kristen Carcamo Patient (or Guardian) Signature/Date: I have read and understand the instructions given to me by my caregivers. Caregiver/RN/Doctor Signature/Date: The above-named patient and/or guardian has received patient instructions on this date. + Original Patient Signature Page (only) stays with chart. Please make copy for patient.
--- NOTE | 2018-03-21 12:14 | Anesthesiology Progress Note ---
Anesthesia Post Op Note Date & Time Mar 21, 2018 at 12:14 Vital Signs Pain Intensity: 0 Vital Signs Past 12 Hours Date Time Temp Pulse Resp B/P (MAP) Pulse Ox O2 Delivery O2 Flow Rate FiO2 03/21/18 11:41 80 20 143/85 (104) 95 Room Air 03/21/18 11:26 36.5 83 16 139/88 (105) 95 Room Air 03/21/18 09:55 36.8 70 18 132/89 (103) 97 Room Air Notes Mental Status: alert / awake / arousable, participated in evaluation Pt Amnestic to Procedure: Yes Nausea / Vomiting: adequately controlled Pain: adequately controlled Airway Patency, RR, SpO2: stable & adequate BP & HR: stable & adequate Hydration State: stable & adequate Anesthetic Complications: no major complications apparent
--- NOTE | 2018-03-21 12:22 | GI REPORT ---
Patient Name: Kristen Carcamo Procedure Date: 03/21/2018 10:21 AM Date of : 1975 Admit Type: Outpatient Age: 42 Gender: Female Attending MD: Leopoldo Angelo DO Procedure: Upper GI endoscopy Providers: Leopoldo Angelo DO Referring MD: Misael Davis Indications: Dysphagia Medicines: Monitored Anesthesia Care Complications: No immediate complications. Estimated Blood Loss: Estimated blood loss: none. Procedure: Pre-Anesthesia Assessment: - Prior to the procedure, a History and Physical was performed, and patient medications and allergies were reviewed. The patient's tolerance of previous anesthesia was also reviewed. The risks and benefits of the procedure and the sedation options and risks were discussed with the patient. All questions were answered, and informed consent was obtained. Prior Anticoagulants: The patient has taken no previous anticoagulant or antiplatelet agents. ASA Grade Assessment: II - A patient with mild systemic disease. After reviewing the risks and benefits, the patient was deemed in satisfactory condition to undergo the procedure. After obtaining informed consent, the endoscope was passed under direct vision. Throughout the procedure, the patient's blood pressure, pulse, and oxygen saturations were monitored continuously. The scope was introduced through the mouth, and advanced to the second part of duodenum. The upper GI endoscopy was accomplished without difficulty. The patient tolerated the procedure well. Findings: A few benign-appearing, intrinsic stenoses were found 38 cm from the incisors. These stenoses were mildly severe and the narrowest stenosis measured 1.6 cm (inner diameter) x less than one cm (in length). The stenoses were traversed. A guidewire was placed and the scope was withdrawn. Dilation was performed with a Savary dilator with mild resistance at 54 Fr. The dilation site was examined and showed no change. A guidewire was placed and the scope was withdrawn. Dilation was attempted, but the lesion was not amenable to treatment with a Savary dilator due to the dilator could not be passed at 60 Fr. A small hiatal hernia was present. The examined duodenum was normal. Impression: - Benign-appearing esophageal stenoses. Dilated. Unable to dilate. - Small hiatal hernia. - Normal examined duodenum. - No specimens collected. Recommendation: - Resume previous diet. - Continue present medications. - Repeat upper endoscopy PRN for retreatment. - If she remains symptomatic, recommend formal esophageal motility testing. - Return to primary care physician as previously scheduled. Leopoldo Angelo, DO 03/21/2018 12:21:17 PM This report has been signed electronically. Note Initiated On: 03/21/2018 10:21 AM Number of Addenda: 0 I attest to the content of the Intraoperative Record and orders documented therein, exceptions below {[id number]}
== END | disposition home or self-care (01) ==
LOC: C.GI 09:11
PROVIDERS: ATTEND Internal Medicine
DX: R13.10 Dysphagia, unspecified (principal); K44.9 Diaphragmatic hernia without obstruction or gangrene; K21.9 Gastro-esophageal reflux disease without esophagitis; K20.0 Eosinophilic esophagitis; J45.909 Unspecified asthma, uncomplicated; Z88.1 Allergy status to other antibiotic agents; Z90.49 Acquired absence of other specified parts of digestive tract; Z90.710 Acquired absence of both cervix and uterus

== ENCOUNTER 2025-06-23 19:13 | Inpatient (IN) ==
[2025-06-23 19:52] LABS: Hematocrit (blood only) 49.9 % (37.0-47.0); Hemoglobin 16.5 g/dL (12.0-16.0); Immature Granulocytes # (auto) 0.06 K/uL (0.01-0.20); Immature Granulocytes % (auto) 0.3 %; Mean Corpuscular Hemoglobin 27.1 pg (25.0-34.0); Mean Corpuscular Volume 82.1 fL (80.0-100.0); Platelet Count 438 K/uL (130-400); RDW Standard Deviation 44.3 fL (36.4-46.3); Red Blood Count 6.08 M/uL (4.20-5.40); White Blood Count 17.21 K/ul (4.8-10.8)
[2025-06-23] MEDS: PLASMA-LYTE A 1,000 ML IV ONE (19:52)
[2025-06-23 20:20] LABS: Alanine Aminotransferase 14.0 U/L (7-52); Albumin Globulin Ratio 0.9 (0.9-2); Albumin Level 3.9 gm/dl (3.4-5.0); Alkaline Phosphatase 107.0 U/L (34-104); Anion Gap 10.0 (3-11); Bilirubin,Total 1.2 mg/dl (0.2-1.0); Blood Urea Nitrogen 8.0 mg/dl (6-23); Calcium 9.9 mg/dl (8.6-10.3); Carbon Dioxide 26.0 mmol/L (21-32); Chloride 100.0 mmol/L (98-107); Creatinine Clr Calc Pharmacy 88.1 ml/min; Globulin 4.2 gm/dl (2.5-4.0); Glucose 134.0 mg/dl (70-99(Fasting)); Lipase 26.0 U/L (11-82); Potassium 3.5 mmol/L (3.5-5.1); Sodium 136.0 mmol/L (136-145); Total Protein 8.1 gm/dl (6.0-8.3)
[2025-06-23 20:28] LABS: Appearance Urine Clear (Clear); Bacteria Urine Automated None Seen (None Seen); Cast Urine Automated 0-2 /lpf (0-2); Epithelial Cell Urine Auto 0-2 /hpf (0-2); Glucose Urine UA Negative (Negative)
[2025-06-23] MEDS: OPTIRAY 320 100ml IV ONE (20:32)
[2025-06-23] MEDS: CIPROFLOXACIN / D5W 400 MG/200 ML BAG IV STA (20:38)
--- NOTE | 2025-06-23 20:52 | Emergency Department Note ---
Impression & Plan Diverticulitis of large intestine with complication, Leukocytosis, Erythrocytosis, Thrombocytosis, Acute dehydration ED Provider Note NAME: RAEGAN BAIRES AGE: 49 SEX: F : 1975 ARRIVES VIA: Walk-In INFORMANT: Patient, son ED PROVIDER(S): Param Gil DO CHIEF COMPLAINT: abdominal pain HPI: This is a 49-year-old female with the PMHx of EoE, asthma, DM2, HLD, obesity, and gastroparesis presenting to [facility] for further evaluation of abdominal pain. Patient is accompanied by her son who provide additional history. Patient states she has had multiple occurrences of diverticulitis over the past year. Most recently had transverse colonic diverticulitis. Patient states she does not have worsening left lower quadrant abdominal pain. Radiates into her epigastrium and left upper quadrant. Sometimes radiates into her back. Patient has been intermittently nauseous. She notes that she has significantly decreased p.o. intake secondary to her symptoms. They deny fever or chills. No cough or congestion. Denies chest pain or palpitations. No shortness of breath. No urinary complaints. No recent changes in bowel movements. Patient denies recent changes in medications or OTC supplements. Patient offers no other complaints, today. ADDITIONAL HISTORY OBTAINED: Per HPI Chronic Medical/Social Conditions Affecting Care: Per HPI PAST MEDICAL HISTORY: See Below PAST SURGICAL HISTORY: See Below FAMILY HISTORY: See Below SOCIAL HISTORY: See Below HOME MEDICATIONS: See Below ALLERGIES: See Below VITALS: See Below PHYSICAL EXAMINATION: GENERAL: Sitting up in bed, alert, well appearing, well nourished, no distress, non-toxic EYE EXAM: normal conjunctiva. OROPHARYNX: no exudate, no erythema, lips, buccal mucosa, and tongue normal and mucous membranes are dry NECK: supple, no nuchal rigidity, no adenopathy, non-tender LUNGS: Clear to auscultation. Normal chest wall mechanics HEART: no murmurs, tachycardic rate, regular rhythm ABDOMEN: abdomen soft, TTP in LLQ, no masses, no rebound or guarding. BACK: Back is symmetrical on inspection and there is no deformity, no midline tenderness, no CVA tenderness. SKIN: no rashes and no bruising UPPER EXTREMITIES: upper extremities are grossly normal. LOWER EXTREMITIES: No pitting edema. NEURO EXAM: Normal sensorium, GCS 15, normal speech, no gross weakness of arms, no gross weakness of legs. MEDICAL DECISION MAKING: Differential diagnoses includes but not limited to appendicitis, bowel obstruction, diverticulitis, malignancy, nephrolithiasis, gastroenteritis, ACS, pancreatitis, hepatobiliary disease, UTI In summary, this is a 49 year old male who presented with abdominal pain. Differential as above. Nursing notes and pertinent past medical records reviewed. Vital signs reviewed and the patient is tachycardic but otherwise afebrile and hemodynamically stable. History and presentation revealed recurrent symptoms of diverticulitis despite outpatient management. She has been on extended course of antibiotics without improvement. Physical examination revealed as above. As a result of my initial evaluation, IV access was established and the patient was placed on CCRM. Therapeutics ordered include IVFR. I did offer the patient pain control but she declined. Plan for CT abdomen/pelvis for further evaluation of recurrent diverticulitis, intestinal perforation, microperforation or abscess. Diagnostics interpreted by me include EKG and cardiac monitoring as listed below: -Cardiac Monitoring: An order was placed for continuous cardiac monitoring. The monitor shows a rate of 80-120 with regular rhythm. -ECG: Normal sinus rhythm at a ventricular rate of [address] segment changes to suggest STEMI. Intervals are within normal limits. Patient completed laboratory studies and imaging. Results independently interpreted by me are leukocytosis. She has some erythrocytosis and thrombocytosis. Patient has normal kidney function and electrolytes. No significant transaminitis. Procalcitonin is relatively normal. No evidence of UTI. Patient appears slightly concentrated. Do feel some of this is likely related to mild dehydration. The patient was managed with IV fluid with resuscitation and antibiotics. Patient was given ciprofloxacin and Flagyl given her known allergies to penicillin derivatives. CT abdomen/pelvis was independently interpreted by me as positive for descending/sigmoidal diverticulitis with concerns for possible microperforation. Given concerns for possible complicated diverticulitis as well as failure of outpatient antibiotics, will request the hospitalist team to admit the patient. I again offered the patient pain control but she declined. Antibiotics were chosen as she has a penicillin allergy. She has not been able to tolerate amoxicillin in the past. Patient was started on ciprofloxacin and Flagyl. She did receive IV fluid resuscitation. Ultimately, the decision was made to admit the patient for complicated diverticulitis with concerns for outpatient antibiotic failure. I discussed the case with the hospitalist service via telephone/Tiger[employer] and they are agreeable to admit the patient to their services by Dr. Oscar, [facility] Hospitalist group. Based on the above, including the patient's age, coexisting illnesses, labs, imaging, and exam findings the decision to treat as an inpatient. I discussed the patient with the hospitalist team who recommended admission to their services. They received the medications, treatments, interventions indicated above and their condition remained stable. I discussed my findings with the patient and their family and they understand and agree with the treatment plan. All patient / family questions were answered to their satisfaction. Consults/Care Managements Discussions: Per MDM ER treatment provided: See above Procedures:none Critical Care: None The chart was completed utilizing [employer] voice recognition software. Grammatical errors, random word insertions, pronoun errors, and incomplete sentences are an occasional consequence of this system due to software limitations, ambient noise, and hardware issues. Any formal questions or concerns about the content, text, or information contained within the body of this dictation should be directly addressed to the physician for clarification. Past Med/Surg History Problem List (Updated 06/27/25 @ 01:16 by Param Gil DO) Acute dehydration (Acute) Thrombocytosis (Acute) Erythrocytosis (Acute) Leukocytosis (Acute) Diverticulitis of large intestine with complication (Acute) Gastroparesis Diverticulitis of sigmoid colon Hyperlipidemia Bladder pain COVID-19 Rosacea Keloid of skin Cognitive and behavioral changes Mixed incontinence urge and stress Gross hematuria Type 2 diabetes mellitus Neurocardiogenic pre-syncope Morbid obesity with BMI of 50.0-59.9, adult Breast lump Incontinence Allergic rhinitis Esophageal dysphagia Eosinophilic esophagitis Interstitial cystitis f/u dr. bland Anemia (Acute) GERD (gastroesophageal reflux disease) (Chronic) Asthma (Chronic) Medical History History of migraine Interstitial cystitis History of diverticulitis recent 12/09/2024 Allergic rhinitis Diabetes mellitus, type 2 History of anemia Barretts esophagus hx History of kidney stones Hx of gastric ulcer 15+ years ago History of COVID-19 09/2022, home test, not hosp; no residual symptoms Overactive bladder Eosinophilic esophagitis hx GERD (gastroesophageal reflux disease) Asthma inhaler prn History of esophageal dilatation HTN (hypertension) "white coat syndrome" Surgical History History of dilatation and curettage x4 Nausea and vomiting after administration of anesthetic agent History of cystoscopy History of esophagogastroduodenoscopy (EGD) (~08/27/20) History of hysterectomy robotic lap hyster History of section X 1 History of cholecystectomy History of colonoscopy H/O wisdom tooth extraction H/O tubal ligation Family History Grandfather FHx: pancreatic cancer Mother IBS (irritable bowel syndrome) Sister Lupus Family/Other Myocardial infarction Grandmother (Maternal) Uterine cancer Other Cancer Diabetes Heart disease Hypertension Nephrolithiasis No family history of adverse response to anesthesia Denies family history of Ovarian cancer Prostate cancer Colorectal cancer Social History Smoking Status: Never smoker Second Hand Exposure: No; Do You Dip or Chew Tobacco: No; Hx Alcohol Use: No Hx Substance Use: No Preferred Language: Latvian Communication Ability: Effective Visual Impairment: No Limitations Hearing Ability: Normal Lithographed Plate Inspector Required: No Beliefs That Will Affect Care: None marital status: Current Living Situation: Spouse and Family Current Living Situation Comment: Lives with and 3 kids current occupational status: unemployed How many Children do You have: 4 Feels Safe at Home: Yes Childhood Exposure to Second-Hand Smoke: No Diet: regular caffeine: Yes during the past year weight has: remained stable Dental Care, Regularly: Yes Physical Activity Frequency: 1-2 Times per Week Seatbelt Use: always Sunscreen Use: Yes Assistive Devices: None Allergies Allergies Allergy/AdvReac Type Severity Reaction Status Date / Time Penicillins Allergy Severe "swells up Verified 06/05/25 12:07 and stops breathing" erythromycin base Allergy Intermediate Hives Verified 06/05/25 12:07 adhesive Allergy Mild Rash/BLISTE Verified 06/05/25 12:07 Home Meds Home Medications Medication Instructions Recorded Confirmed ondansetron 4 mg disintegrating 4 mg PO TID PRN Nausea 10/04/18 06/23/25 tablet cetirizine 10 mg tablet (Zyrtec) 10 mg PO BID 04/26/19 06/23/25 azelastine 137 mcg (0.1 %) nasal 2 spray intranasal QAM PRN Allergy 01/13/20 06/23/25 spray Symptoms famotidine 20 mg tablet 20 mg PO QAM 05/20/20 06/23/25 rizatriptan 10 mg tablet 10 mg PO UD PRN Migraine Headache 05/03/23 06/23/25 fluticasone propionate 50 1 spray intranasal BID PRN 12/09/24 06/23/25 mcg/actuation nasal allergies spray,suspension mometasone-formoterol HFA 100 2 puff inhalation BID PRN 12/09/24 06/23/25 mcg-5 mcg/actuation aerosol Shortness Of Breath inhaler (Dulera) prucalopride 2 mg tablet 2 mg PO QPM 12/09/24 06/23/25 vibegron 75 mg tablet (Gemtesa) 75 mg PO QPM 12/23/24 06/23/25 atogepant 60 mg tablet (Qulipta) 60 mg PO QPM 06/05/25 06/23/25 albuterol sulfate 90 mcg/actuation 2 puff inhalation Q4 PRN Shortness 06/23/25 06/23/25 aerosol inhaler Of Breath Or Wheezing dupilumab 300 mg/2 mL subcutaneous 300 mg subcut .EVERY 2 WEEKS 06/23/25 06/23/25 syringe (Dupixent) lisinopril 5 mg tablet 5 mg PO QPM 06/23/25 06/23/25 Previous Rx's Medication Instructions Recorded pantoprazole 40 mg tablet,delayed 40 mg PO BID #60 tabs 07/07/20 release blood-glucose meter (OneTouch #1 ea 04/22/21 Ultra2 Meter) lancets 30 gauge (OneTouch Delica #100 ea 05/26/21 Lancets) blood sugar diagnostic (OneTouch #100 ea 07/04/22 Ultra Test strips) inhaler,assist devices,access #1 ea 10/25/22 olopatadine 0.1 % eye drops 1 drp ophthalmic (eye) BID PRN Eye 12/29/23 Irritation #5 mL niacin 500 mg tablet,extended 500 mg PO .Nightly #90 tabs 03/18/25 release 24 hr estradiol 0.05 mg/24 hr semiweekly 1 patch transdermal .2xweek #8 ea 04/25/25 transdermal patch oxymetazoline 1 % topical cream 1 applic topical DAILY #30 grams 04/30/25 (Rhofade) semaglutide 1 mg/dose (4 mg/3 mL) 1 mg (0.75 mL) subcut Q7D #3 mL 05/27/25 subcutaneous pen injector Results & Data (ED) Vital Signs Vital Signs - 24 hr 06/23/25 19:18 06/23/25 19:44 06/23/25 20:00 Temperature 36.6 C Temperature Source Oral Pulse Rate 115 H 97 H 103 H Pulse Rate from SpO2 Sensor Respiratory Rate 18 18 Respiratory Effort / Characteristics Non-Labored Spontaneous Respiratory Depth Normal Blood Pressure 157/111 H 130/101 H Blood Pressure Mean 126 110 Blood Pressure Position Sitting Pulse Oximetry 97 96 Oxygen Delivery Method Room Air Room Air Sepsis Recent Fever Within 48 Hours No Sepsis New/Unexplained Change in Mental Status N/A Sepsis Action Taken by Nursing No Action Required 06/23/25 21:00 06/23/25 22:00 06/23/25 22:00 Temperature Temperature Source Pulse Rate 88 91 H Pulse Rate from SpO2 Sensor 86 Respiratory Rate 19 17 Respiratory Effort / Characteristics Respiratory Depth Blood Pressure 135/109 H 132/88 132/88 Blood Pressure Mean 117 102 105 Blood Pressure Position Pulse Oximetry 94 95 Oxygen Delivery Method Sepsis Recent Fever Within 48 Hours Sepsis New/Unexplained Change in Mental Status Sepsis Action Taken by Nursing 06/23/25 22:00 06/23/25 22:00 06/23/25 22:00 Temperature Temperature Source Pulse Rate Pulse Rate from SpO2 Sensor Respiratory Rate Respiratory Effort / Characteristics Respiratory Depth Blood Pressure 132/88 132/88 132/88 Blood Pressure Mean 105 105 105 Blood Pressure Position Pulse Oximetry Oxygen Delivery Method Sepsis Recent Fever Within 48 Hours Sepsis New/Unexplained Change in Mental Status Sepsis Action Taken by Nursing 06/23/25 22:30 06/23/25 22:30 06/23/25 22:30 Temperature Temperature Source Pulse Rate 100 H Pulse Rate from SpO2 Sensor 100 H Respiratory Rate 31 H Respiratory Effort / Characteristics Respiratory Depth Blood Pressure 139/96 139/96 Blood Pressure Mean 108 108 Blood Pressure Position Pulse Oximetry 95 Oxygen Delivery Method Sepsis Recent Fever Within 48 Hours Sepsis New/Unexplained Change in Mental Status Sepsis Action Taken by Nursing 06/23/25 22:30 06/23/25 22:30 06/23/25 22:30 Temperature Temperature Source Pulse Rate Pulse Rate from SpO2 Sensor Respiratory Rate Respiratory Effort / Characteristics Respiratory Depth Blood Pressure 139/96 139/96 139/96 Blood Pressure Mean 108 108 108 Blood Pressure Position Pulse Oximetry Oxygen Delivery Method Sepsis Recent Fever Within 48 Hours Sepsis New/Unexplained Change in Mental Status Sepsis Action Taken by Nursing Laboratory Data 06/26/25 05:58 06/26/25 05:58 Lab Results 06/23/25 06/23/25 Range/Units 19:35 19:54 WBC 17.21 H (4.8-10.8) K/ul RBC 6.08 H (4.20-5.40) M/uL Hgb 16.5 H (12.0-16.0) g/dL Hct 49.9 H (37.0-47.0) % MCV 82.1 (80.0-100.0) fL MCH 27.1 (25.0-34.0) pg MCHC 33.1 (32.0-36.0) g/dL RDW Std Deviation 44.3 (36.4-46.3) fL RDW Coeff of Venus 14.8 H (11.5-14.5) % Plt Count 438 H (130-400) K/uL MPV 9.3 L (9.4-12.4) fL Immature Gran % (Auto) 0.3 % Neut % (Auto) 71.9 % Lymph % (Auto) 22.5 % Williamson % (Auto) 4.1 % Eos % (Auto) 0.9 % Baso % (Auto) 0.3 % Neut # (Auto) 12.36 H (1.40-6.50) K/uL Lymph # (Auto) 3.87 H (1.20-3.40) K/uL Williamson # (Auto) 0.71 H (0.11-0.59) K/uL Eos # (Auto) 0.16 (0.00-0.50) K/uL Baso # (Auto) 0.05 (0.00-0.20) K/uL Immature Gran # (Auto) 0.06 (0.01-0.20) K/uL Sodium 136 (136-145) mmol/L Potassium 3.5 (3.5-5.1) mmol/L Chloride 100 (98-107) mmol/L Carbon Dioxide 26 (21-32) mmol/L Anion Gap 10 (3-11) BUN 8 (6-23) mg/dl Creatinine 1.03 (0.6-1.2) mg/dl Est Cr Clr Drug Dosing 88.1 ml/min eGFR 67.49 BUN/Creatinine Ratio 7.8 L (10-20) Glucose 134 H (70-99(Fasting)) mg/dl Lactate 1.5 (0.4-2.0) mmol/L Calcium 9.9 (8.6-10.3) mg/dl Total Bilirubin 1.2 H (0.2-1.0) mg/dl AST 15 (13-39) U/L ALT 14 (7-52) U/L Alkaline Phosphatase 107 H (34-104) U/L Total Protein 8.1 (6.0-8.3) gm/dl Albumin 3.9 (3.4-5.0) gm/dl Globulin 4.2 H (2.5-4.0) gm/dl Albumin/Globulin Ratio 0.9 (0.9-2) Lipase 26 (11-82) U/L Procalcitonin 0.06 (0-0.5) ng/ml Urine Color Deland Urine Appearance Clear (Clear) Urine pH 5.5 (4.5-7.5) Ur Specific [place] 1.026 (1.000-1.030) Urine Protein 1+ H (Negative) Urine Glucose (UA) Negative (Negative) Urine Ketones 1+ H (Negative) Urine Blood Trace H (Negative) Urine Nitrite Positive A (Negative) Urine Bilirubin 2+ H (Negative) Urine Urobilinogen Positive H (Negative) Ur Leukocyte Esterase 1+ H (Negative) Urine WBC (Auto) 6-10 H (0-5) /hpf Urine RBC (Auto) 6-10 H (0-2) /hpf U Hyaline Cast (Auto) 0-2 (0-2) /lpf U Epithel Cells (Auto) 0-2 (0-2) /hpf Urine Bacteria (Auto) None Seen (None Seen) Calcium Oxalate Crystal Present A (None Prsent) Urine Mucus Present A (None Prsent) Urine Comment Administered Medications Acetaminophen (Acetaminophen 325 Mg Tab) 650 mg PO Q4H PRN PRN Reason: pain/fever Stop: 07/23/25 23:43 Last Admin: 06/25/25 08:59 Dose: 650 mg Documented By: KADIE Cetirizine HCl (Cetirizine Hcl 10 Mg Tablet) 10 mg PO BID BEN Stop: 07/24/25 08:59 Last Admin: 06/26/25 20:35 Dose: 10 mg Documented By: Admin: 06/26/25 09:21 Dose: 10 mg Documented By: bridget Admin: 06/25/25 22:18 Dose: 10 mg Documented By: vance Admin: 06/25/25 09:03 Dose: 10 mg Documented By: Admin: 06/24/25 21:02 Dose: 10 mg Documented By: vance Admin: 06/24/25 08:40 Dose: 10 mg Documented By: KADIE Ciprofloxacin (Ciprofloxacin 500 Mg Tab) 500 mg PO BID BEN Stop: 07/03/25 23:59 Last Admin: 06/26/25 20:35 Dose: 500 mg Documented By: ESE Famotidine (Famotidine 20 Mg Tab) 20 mg PO BID BEN Stop: 07/24/25 08:59 Last Admin: 06/26/25 20:40 Dose: 20 mg Documented By: Admin: 06/26/25 09:19 Dose: 20 mg Documented By: bridget Admin: 06/25/25 21:02 Dose: 20 mg Documented By: vance Admin: 06/25/25 09:10 Dose: 20 mg Documented By: Admin: 06/24/25 21:03 Dose: 20 mg Documented By: vance Admin: 06/24/25 08:40 Dose: 20 mg Documented By: KADIE Acetaminophen (Ofirmev) 1,000 mg in 100 mls @ 400 mls/hr IV Q8H PRN PRN Reason: Pain or Fever Stop: 06/27/25 03:38 Last Infusion: 06/24/25 14:22 Dose: Infused Documented By: Admin: 06/24/25 13:59 Dose: 400 mls/hr Documented By: Infusion: 06/24/25 04:11 Dose: Infused Documented By: Admin: 06/24/25 03:51 Dose: 400 mls/hr Documented By: SINGH Metronidazole (Metronidazole 500 Mg Tab) 500 mg PO BID BEN Stop: 07/03/25 23:59 Last Admin: 06/26/25 20:35 Dose: 500 mg Documented By: ESE Miscellaneous (Prucalopride: Order Awaiting Action) 1 each N/A QS BEN Stop: 07/24/25 07:59 Last Admin: 06/27/25 00:19 Dose: Not Given Documented By: Admin: 06/26/25 15:31 Dose: Not Given Documented By: Admin: 06/26/25 08:01 Dose: Not Given Documented By: Admin: 06/26/25 01:05 Dose: Not Given Documented By: abf Admin: 06/25/25 16:36 Dose: Not Given Documented By: Admin: 06/25/25 08:24 Dose: Not Given Documented By: Admin: 06/24/25 23:26 Dose: Not Given Documented By: abf Admin: 06/24/25 15:35 Dose: Not Given Documented By: Admin: 06/24/25 07:38 Dose: Not Given Documented By: KADIE Riberacellaneous (Olopatadine 0.1%: Order Awaiting Action) 1 each N/A QS BEN Stop: 07/24/25 07:59 Last Admin: 06/27/25 00:18 Dose: Not Given Documented By: Admin: 06/26/25 15:31 Dose: Not Given Documented By: Admin: 06/26/25 08:01 Dose: Not Given Documented By: Admin: 06/26/25 01:05 Dose: Not Given Documented By: abf Admin: 06/25/25 16:36 Dose: Not Given Documented By: Admin: 06/25/25 08:23 Dose: Not Given Documented By: Admin: 06/24/25 23:25 Dose: Not Given Documented By: abf Admin: 06/24/25 15:34 Dose: Not Given Documented By: Admin: 06/24/25 07:38 Dose: Not Given Documented By: KADIE Miscellaneous (Order Awaiting Action: Estradiol Biweekly Patch) 1 each N/A QS BEN Stop: 07/26/25 00:00 Last Admin: 06/27/25 00:18 Dose: Not Given Documented By: Admin: 06/26/25 15:31 Dose: Not Given Documented By: Admin: 06/26/25 08:01 Dose: Not Given Documented By: Admin: 06/26/25 01:05 Dose: Not Given Documented By: vance Miscellaneous (Atogepant [Qulipta]: Order Awaiting Action) 1 each N/A QS [facility] Stop: 07/24/25 07:59 Last Admin: 06/27/25 00:18 Dose: Not Given Documented By: Admin: 06/26/25 15:31 Dose: Not Given Documented By: Admin: 06/26/25 08:01 Dose: Not Given Documented By: Admin: 06/26/25 01:05 Dose: Not Given Documented By: vance Admin: 06/25/25 16:36 Dose: Not Given Documented By: Admin: 06/25/25 08:23 Dose: Not Given Documented By: Admin: 06/24/25 23:25 Dose: Not Given Documented By: vance Admin: 06/24/25 15:34 Dose: Not Given Documented By: Admin: 06/24/25 07:38 Dose: Not Given Documented By: KADIE Multivitamins (Multivitamin Tab) 1 tab PO QAM [facility] Stop: 07/24/25 08:59 Last Admin: 06/26/25 09:19 Dose: 1 tab Documented By: bridget Admin: 06/25/25 09:03 Dose: 1 tab Documented By: Admin: 06/24/25 08:40 Dose: 1 tab Documented By: KADIE Ondansetron HCl (Ondansetron Inj 2 Mg/Ml 2 Ml Vial) 4 mg IV Q6H PRN PRN Reason: NAUSEA/VOMITING Stop: 07/23/25 23:43 Last Admin: 06/25/25 08:59 Dose: 4 mg Documented By: KADIE Pantoprazole Sodium (Pantoprazole 40 Mg Tab) 40 mg PO BID [facility] Stop: 07/24/25 08:59 Last Admin: 06/26/25 20:36 Dose: 40 mg Documented By: Admin: 06/26/25 09:20 Dose: 40 mg Documented By: bridget Admin: 06/25/25 21:02 Dose: 40 mg Documented By: vance Admin: 06/25/25 09:03 Dose: 40 mg Documented By: Admin: 06/24/25 21:03 Dose: 40 mg Documented By: vance Admin: 06/24/25 08:40 Dose: 40 mg Documented By: KADIE Vibegron (Vibegron 75 Mg Tab) 75 mg PO QPM BEN Stop: 07/24/25 20:59 Last Admin: 06/26/25 20:36 Dose: 75 mg Documented By: Admin: 06/25/25 21:02 Dose: 75 mg Documented By: abf Admin: 06/24/25 21:03 Dose: 75 mg Documented By: abf Discontinued Medications Parenteral Electrolytes (Plasma-Lyte A Ph 7.4) 1,000 mls @ 999 mls/hr IV .Q1H1M ONE Stop: 06/23/25 20:40 Last Infusion: 06/23/25 22:37 Dose: Infused Documented By: Admin: 06/23/25 19:52 Dose: 999 mls/hr Documented By: JOYCE Ciprofloxacin (Cipro / D5w) 400 mg in 200 mls @ 100 mls/hr IV NOW STA; Protocol Stop: 06/23/25 22:05 Last Infusion: 06/23/25 22:37 Dose: Infused Documented By: Admin: 06/23/25 20:38 Dose: 100 mls/hr Documented By: JOYCE Metronidazole (Flagyl) 500 mg in 100 mls @ 100 mls/hr IV NOW STA; Protocol Stop: 06/23/25 21:05 Last Infusion: 06/23/25 22:37 Dose: Infused Documented By: Admin: 06/23/25 21:30 Dose: 100 mls/hr Documented By: JOYCE Pantoprazole Sodium (Protonix) 40 mg in 10 mls @ 5 mls/min IV NOW ONE Stop: 06/23/25 22:26 Last Admin: 06/23/25 23:07 Dose: 5 mls/min Documented By: JOYCE Famotidine (Pepcid 20mg Iv Push) 20 mg in 5 mls @ 2.5 mls/min IV NOW STA Stop: 06/23/25 22:26 Last Admin: 06/23/25 23:08 Dose: 2.5 mls/min Documented By: JOYCE Lactated Ringer's (Lr) 1,000 mls @ 80 mls/hr IV .[id number] [facility] Stop: 06/24/25 11:14 Last Infusion: 06/24/25 15:34 Dose: Infused Documented By: Infusion: 06/24/25 13:39 Dose: 1,230 mls/hr Documented By: Infusion: 06/24/25 09:18 Dose: 0 mls/hr Documented By: Admin: 06/24/25 00:09 Dose: 80 mls/hr Documented By: ATS Metronidazole (Flagyl) 500 mg in 100 mls @ 100 mls/hr IV Q8H BEN; Protocol Stop: 07/04/25 05:59 Last Infusion: 06/26/25 14:40 Dose: Infused Documented By: Admin: 06/26/25 13:26 Dose: 100 mls/hr Documented By: Infusion: 06/26/25 08:01 Dose: Infused Documented By: Admin: 06/26/25 06:18 Dose: 100 mls/hr Documented By: abf Infusion: 06/25/25 23:40 Dose: Infused Documented By: abf Admin: 06/25/25 22:18 Dose: 100 mls/hr Documented By: abf Infusion: 06/25/25 16:07 Dose: Infused Documented By: Admin: 06/25/25 15:00 Dose: 100 mls/hr Documented By: Infusion: 06/25/25 08:21 Dose: Infused Documented By: Admin: 06/25/25 05:27 Dose: 100 mls/hr Documented By: abf Infusion: 06/24/25 23:26 Dose: Infused Documented By: abf Admin: 06/24/25 21:04 Dose: 100 mls/hr Documented By: abf Infusion: 06/24/25 15:34 Dose: Infused Documented By: Admin: 06/24/25 14:22 Dose: 100 mls/hr Documented By: Infusion: 06/24/25 06:20 Dose: Infused Documented By: Admin: 06/24/25 05:15 Dose: 100 mls/hr Documented By: ATS Ciprofloxacin (Cipro / D5w) 400 mg in 200 mls @ 100 mls/hr IV Q12H BEN; Protocol Stop: 07/04/25 08:59 Last Infusion: 06/26/25 12:03 Dose: Infused Documented By: Admin: 06/26/25 09:22 Dose: 100 mls/hr Documented By: nab Infusion: 06/26/25 00:31 Dose: Infused Documented By: abf Admin: 06/25/25 21:02 Dose: 200 mls/hr Documented By: abf Infusion: 06/25/25 11:10 Dose: Infused Documented By: Admin: 06/25/25 09:01 Dose: 100 mls/hr Documented By: Infusion: 06/24/25 23:27 Dose: Infused Documented By: abkrysten Admin: 06/24/25 21:02 Dose: 100 mls/hr Documented By: abf Infusion: 06/24/25 11:21 Dose: Infused Documented By: Admin: 06/24/25 09:16 Dose: 100 mls/hr Documented By: KADIE Ioversol (Optiray 320 100ml) 90 ml IV ONCE ONE Stop: 06/23/25 20:33 Last Admin: 06/23/25 20:32 Dose: 90 ml Documented By: MICHAEL Ondansetron HCl (Ondansetron Inj 2 Mg/Ml 2 Ml Vial) 4 mg IV Q6H PRN PRN Reason: NAUSEA/VOMITING Stop: 07/23/25 22:24 Last Admin: 06/24/25 05:15 Dose: 4 mg Documented By: [facility] [employer] Data Radiologist's Impression: Abdomen/Pelvis CT 06/23/25 19:40 Exam(s): CT ABDOMEN + PELVIS With Contrast IV Amt: 90 ml optiray 320 EXAM: CT Abdomen and Pelvis With Intravenous Contrast CLINICAL HISTORY: Eval for diverticulitis. TECHNIQUE: Axial computed tomography images of the abdomen and pelvis with intravenous contrast. CTDI is 36 mGy and DLP is 2067 mGy-cm. Automated exposure control was utilized for the study. A dose lowering technique was utilized adhering to the principles of ALARA. CONTRAST: Patient received 90 ml optiray 320 of IV contrast COMPARISON: CT abdomen and pelvis with contrast dated 05/05/2025 FINDINGS: Limitations: There is respiratory artifact, which degrades image quality on multiple image slices. Lung bases: Unremarkable. No mass. No consolidation. ABDOMEN: Liver: Unremarkable. No mass. Gallbladder and bile ducts: Status post cholecystectomy, stable. No ductal dilation. Pancreas: Unremarkable. No mass. No ductal dilation. Spleen: Unremarkable. No splenomegaly. Adrenals: Unremarkable. No mass. Kidneys and ureters: Unremarkable. No solid mass. No hydronephrosis. Stomach and bowel: Focal pericolonic fat stranding noted along the lateral aspect of the proximal sigmoid colon with regional diverticula. The remaining small and large bowel is unremarkable. Minimal stool burden. PELVIS: Appendix: No findings to suggest acute appendicitis. Bladder: Unremarkable. No mass. Reproductive: Status post hysterectomy. ABDOMEN and PELVIS: Intraperitoneal space: Unremarkable. No free air. No significant fluid collection. Bones/joints: No acute fracture. No dislocation. Soft tissues: Unremarkable. Vasculature: Unremarkable. No abdominal aortic aneurysm. Lymph nodes: Unremarkable. No enlarged lymph nodes. IMPRESSION: Focal pericolonic fat stranding noted along the lateral aspect of the proximal sigmoid colon with regional diverticula. The primary consideration is sigmoid diverticulitis. No abscess or perforation. No bowel obstruction. Electronically signed by: Cade Springer MD 06/23/25 20:56 PM Discharge Plan Visit Data Chief Complaint: Abdominal Pain Stated Complaint: ABD PAIN, FLANK PAIN, DARK URINE, OFF&ON FEW DAYS ED Provider: Param Gil Discharge Problem: Diverticulitis of large intestine with complication, Leukocytosis, Erythrocytosis, Thrombocytosis, Acute dehydration Patient Disposition: Admitted As Inpatient Condition: Serious Discharge Instructions Interventions: ED Discharge Assessment Last Done: 06/23/25 23:23
--- NOTE | 2025-06-23 20:56 | CT Scan Report ---
Exam(s): CT ABDOMEN + PELVIS With Contrast IV Amt: 90 ml optiray 320 EXAM: CT Abdomen and Pelvis With Intravenous Contrast CLINICAL HISTORY: Eval for diverticulitis. TECHNIQUE: Axial computed tomography images of the abdomen and pelvis with intravenous contrast. CTDI is 36 mGy and DLP is 2067 mGy-cm. Automated exposure control was utilized for the study. A dose lowering technique was utilized adhering to the principles of ALARA. CONTRAST: Patient received 90 ml optiray 320 of IV contrast COMPARISON: CT abdomen and pelvis with contrast dated 05/05/2025 FINDINGS: Limitations: There is respiratory artifact, which degrades image quality on multiple image slices. Lung bases: Unremarkable. No mass. No consolidation. ABDOMEN: Liver: Unremarkable. No mass. Gallbladder and bile ducts: Status post cholecystectomy, stable. No ductal dilation. Pancreas: Unremarkable. No mass. No ductal dilation. Spleen: Unremarkable. No splenomegaly. Adrenals: Unremarkable. No mass. Kidneys and ureters: Unremarkable. No solid mass. No hydronephrosis. Stomach and bowel: Focal pericolonic fat stranding noted along the lateral aspect of the proximal sigmoid colon with regional diverticula. The remaining small and large bowel is unremarkable. Minimal stool burden. PELVIS: Appendix: No findings to suggest acute appendicitis. Bladder: Unremarkable. No mass. Reproductive: Status post hysterectomy. ABDOMEN and PELVIS: Intraperitoneal space: Unremarkable. No free air. No significant fluid collection. Bones/joints: No acute fracture. No dislocation. Soft tissues: Unremarkable. Vasculature: Unremarkable. No abdominal aortic aneurysm. Lymph nodes: Unremarkable. No enlarged lymph nodes. IMPRESSION: Focal pericolonic fat stranding noted along the lateral aspect of the proximal sigmoid colon with regional diverticula. The primary consideration is sigmoid diverticulitis. No abscess or perforation. No bowel obstruction. Electronically signed by: Cade Springer MD 06/23/25 20:56 PM
[2025-06-23] MEDS: metroNIDAZOLE 500 MG/100 ML BAG IV STA (21:30)
--- NOTE | 2025-06-23 22:41 | History & Physical Report ---
Date of Service June 23, 2025 Assessment & Plan (1) Diverticulitis of sigmoid colon: (2) Eosinophilic esophagitis: (3) Asthma: (4) Type 2 diabetes mellitus: (5) Gastroparesis: Plan The patient is a 49-year-old female with past medical history including hyperlipidemia, interstitial cystitis, mixed urge and stress urinary incontinence, diabetes mellitus type 2, neurocardiogenic presyncope, morbid obesity, allergic rhinitis, esophageal dysphagia, eosinophilic esophagitis, ane yuval, GERD, and eosinophilic asthma. She presents to the emergency department with several days of worsening abdominal pain and left lower quadrant, without nausea or vomiting, similar to previous episodes of diverticulitis. CT scan abdomen and pelvis is consistent with sigmoid diverticulitis. Significant laboratory abnormalities: WBC 17.21, hemoglobin 16.5, hematocrit 49.9, glucose 134, potassium 3.5. Patient was placed on Cipro 400 mg IV, Flagyl 500 mg IV, and Plasma-Lyte 1 L bolus, and was then referred for evaluation for admission to the [facility]. Diverticulitis of sigmoid colon/gastroparesis/eosinophilic esophagitis- This is her third case of diverticulitis this year, with first being in December involving the sigmoid colon, the second episode being in April involving the transverse colon. She had been on a high-fiber diet for diverticulitis, but has also had to try to match that with her low fiber diet associated with gastroparesis. Cipro 400 mg IV every 12 hours Flagyl 500 mg IV every 8 hour Status post 1 L Plasma-Lyte bolus in the ED. Placed on LR at 80 mL/h x 1 L, can extend if needed. Acetaminophen 650 mg by mouth every 6 hours as needed for mild pain or fever Give pantoprazole 40 mg IV tonight, then 40 mg p.o. twice daily starting tomorrow Give famotidine 20 mg IV tonight, then 20 mg by mouth increasing to twice daily tomorrow Continue prucalopride for gastroparesis She had to change from Fasenra to Dupixent earlier this year due to insurance issues, since that time she has had worsening esophageal issues, and has had 3 cases of diverticulitis, which she has never had prior to this year. She follows with Dr. Dodd, and hopefully insurance will understand how much better she has been doing on Fasenra, and was not hospitalized during that time while she was on Fasenra. She has had to have colonoscopy changed few times due to recurrences of diverticulitis, and presently has a colonoscopy scheduled with Dr. Murillo in July. Allergic rhinitis/asthma- Continue azelastine, cetirizine, Dulera, fluticasone propionate nasal spray Albuterol HFA 2 puffs 4 times daily as needed Migraine- Continue rizatriptan as needed On atogepant 60 mg p.o. daily as outpatient, continue if formulary Bladder spasm/interstitial cystitis- Continue vibegron Weight management- Hold semaglutide Hyperlipidemia- Hold niacin. Niacin was started in March, and may be contributing to some symptoms since that time as well History of Present Illness Primary Care Provider: Misael Davis DO The patient is a 49-year-old female with past medical history including hyperlipidemia, interstitial cystitis, mixed urge and stress urinary inconti nence, diabetes mellitus type 2, neurocardiogenic presyncope, morbid obesity, allergic rhinitis, esophageal dysphagia, eosinophilic esophagitis, anemia, GERD, and eosinophilic asthma. She presents to the emergency department with several days of worsening abdominal pain and left lower quadrant, without nausea or vomiting, similar to previous episodes of diverticulitis. CT scan abdomen and pelvis is consistent with sigmoid diverticulitis. Significant laboratory abnormalities: WBC 17.21, hemoglobin 16.5, hematocrit 49.9, glucose 134, potassium 3.5. Patient was placed on Cipro 400 mg IV, Flagyl 500 mg IV, and Plasma-Lyte 1 L bolus, and was then referred for evaluation for admission to the [facility]. Allergies Allergy/AdvReac Type Severity Reaction Status Date / Time Penicillins Allergy Severe "swells up Verified 06/05/25 12:07 and stops breathing" erythromycin base Allergy Intermediate Hives Verified 06/05/25 12:07 adhesive Allergy Mild Rash/BLISTE Verified 06/05/25 12:07 RS Home Medications Medication Instructions Recorded Confirmed Type ondansetron 4 mg disintegrating 4 mg PO TID PRN Nausea 10/04/18 06/23/25 History tablet cetirizine 10 mg tablet (Zyrtec) 10 mg PO BID 04/26/19 06/23/25 History azelastine 137 mcg (0.1 %) nasal 2 spray intranasal QAM PRN Allergy 01/13/20 06/23/25 History spray Symptoms famotidine 20 mg tablet 20 mg PO QAM 05/20/20 06/23/25 History pantoprazole 40 mg tablet,delayed 40 mg PO BID #60 tabs 07/07/20 06/23/25 Rx release blood-glucose meter (OneTouch #1 ea 04/22/21 06/05/25 Rx Ultra2 Meter) lancets 30 gauge (OneTouch Delica #100 ea 05/26/21 06/05/25 Rx Lancets) blood sugar diagnostic (OneTouch #100 ea 07/04/22 06/05/25 Rx Ultra Test strips) inhaler,assist devices,access #1 ea 10/25/22 06/05/25 Rx rizatriptan 10 mg tablet 10 mg PO UD PRN Migraine Headache 05/03/23 06/23/25 History olopatadine 0.1 % eye drops 1 drp ophthalmic (eye) BID PRN Eye 12/29/23 06/23/25 Rx Irritation #5 mL fluticasone propionate 50 1 spray intranasal BID PRN 12/09/24 06/23/25 History mcg/actuation nasal allergies spray,suspension mometasone-formoterol HFA 100 2 puff inhalation BID PRN 12/09/24 06/23/25 History mcg-5 mcg/actuation aerosol Shortness Of Breath inhaler (Dulera) prucalopride 2 mg tablet 2 mg PO QPM 12/09/24 06/23/25 History vibegron 75 mg tablet (Gemtesa) 75 mg PO QPM 12/23/24 06/23/25 History niacin 500 mg tablet,extended 500 mg PO .Nightly #90 tabs 03/18/25 06/23/25 Rx release 24 hr estradiol 0.05 mg/24 hr semiweekly 1 patch transdermal .2xweek #8 ea 04/25/25 06/23/25 Rx transdermal patch oxymetazoline 1 % topical cream 1 applic topical DAILY #30 grams 04/30/25 06/23/25 Rx (Rhofade) semaglutide 1 mg/dose (4 mg/3 mL) 1 mg (0.75 mL) subcut Q7D #3 mL 05/27/25 06/23/25 Rx subcutaneous pen injector atogepant 60 mg tablet (Qulipta) 60 mg PO QPM 06/05/25 06/23/25 History albuterol sulfate 90 mcg/actuation 2 puff inhalation Q4 PRN Shortness 06/23/25 06/23/25 History aerosol inhaler Of Breath Or Wheezing dupilumab 300 mg/2 mL subcutaneous 300 mg subcut .EVERY 2 WEEKS 06/23/25 06/23/25 History syringe (Dupixent) lisinopril 5 mg tablet 5 mg PO QPM 06/23/25 06/23/25 History Past Med/Surg History Problem List (Updated 06/23/25 @ 23:11 by Jeff Oscar MD) Gastroparesis Diverticulitis of sigmoid colon Hyperlipidemia Bladder pain COVID-19 Rosacea Keloid of skin Cognitive and behavioral changes Mixed incontinence urge and stress Gross hematuria Type 2 diabetes mellitus Neurocardiogenic pre-syncope Morbid obesity with BMI of 50.0-59.9, adult Breast lump Incontinence Allergic rhinitis Esophageal dysphagia Eosinophilic esophagitis Interstitial cystitis f/u dr. bland Anemia (Acute) GERD (gastroesophageal reflux disease) (Chronic) Asthma (Chronic) Medical History History of migraine Interstitial cystitis History of diverticulitis recent 12/09/2024 Allergic rhinitis Diabetes mellitus, type 2 History of anemia Barretts esophagus hx History of kidney stones Hx of gastric ulcer 15+ years ago History of COVID-19 09/2022, home test, not hosp; no residual symptoms Overactive bladder Eosinophilic esophagitis hx GERD (gastroesophageal reflux disease) Asthma inhaler prn History of esophageal dilatation HTN (hypertension) "white coat syndrome" Surgical History History of dilatation and curettage x4 Nausea and vomiting after administration of anesthetic agent History of cystoscopy History of esophagogastroduodenoscopy (EGD) (~08/27/20) History of hysterectomy robotic lap hyster History of section X 1 History of cholecystectomy History of colonoscopy H/O wisdom tooth extraction H/O tubal ligation Family History Grandfather FHx: pancreatic cancer Mother IBS (irritable bowel syndrome) Sister Lupus Family/Other Myocardial infarction Grandmother (Maternal) Uterine cancer Other Cancer Diabetes Heart disease Hypertension Nephrolithiasis No family history of adverse response to anesthesia Denies family history of Ovarian cancer Prostate cancer Colorectal cancer Social History Smoking Status: Never smoker Second Hand Exposure: No; Do You Dip or Chew Tobacco: No; Hx Alcohol Use: No Hx Substance Use: No Preferred Language: Spanish Communication Ability: Effective Visual Impairment: No Limitations Hearing Ability: Normal [place]il Fertility Specialist Required: No Beliefs That Will Affect Care: None marital status: Current Living Situation: Spouse and Family Current Living Situation Comment: Lives with and 3 kids current occupational status: unemployed How many Children do You have: 4 Feels Safe at Home: Yes Childhood Exposure to Second-Hand Smoke: No Diet: regular caffeine: Yes during the past year weight has: remained stable Dental Care, Regularly: Yes Physical Activity Frequency: 1-2 Times per Week Seatbelt Use: always Sunscreen Use: Yes Assistive Devices: Glasses Review of Systems Review of Systems: The patient denies chest pain, palpitations, shortness of breath, dyspnea on exertion, cough, lower extremity swelling, sore throat, fevers, chills, sweats, nausea, vomiting, diarrhea , constipation, blood in urine or stool, dysuria, urinary frequency or urgency, lightheadedness, dizziness, headache, memory loss, loss of consciousness, rash, abnormal bruising or bleeding, imbalance, focal or generalized weakness, numbness or tingling in arms or legs, generalized arthralgias or myalgias, back or neck pain, or night sweats. The review of systems is otherwise negative other than for that already noted above, and at least 10 systems have been reviewed. Physical Exam Physical Exam: The patient is awake, alert and oriented 3, well developed and well nourished, normocephalic and atraumatic, lying in bed and in no acute distress. HEENT--PERRL, EOMI, mucous membranes and oropharynx mildy dry. Neck--supple. No JVD. No bruits. Thyroid normal, trachea midline, no adenopathy. Heart--normal S1 and S2. No murmurs, rubs or gallops. Lungs--clear bilaterally, no respiratory distress, no accessory muscle use. Abdomen--normal bowel sounds and soft. Mild tenderness left upper quadrant. nondistended Extremities--no cyanosis or clubbing. No edema. There are good distal pulses b/l. Dermatologic--normal skin turgor, normal color, no abnormal lymph nodes, no rash. Neurologic--cranial nerves II through XII grossly intact. Rheumatologic--normal range of motion. Psychiatric--normal affect. Results & Data Results & Data Vital Signs (Past 12 Hours) Vital Signs Temp Pulse Resp BP Pulse Ox O2 Del Method 06/23/25 21:00 88 19 135/109 H 94 06/23/25 20:00 103 H 18 130/101 H 96 Room Air 06/23/25 19:44 97 H 06/23/25 19:18 36.6 C 115 H 18 157/111 H 97 Room Air Laboratory Results Laboratory Results WBC 17.21 K/ul (4.8-10.8) H 06/23/25 19:35 RBC 6.08 M/uL (4.20-5.40) H 06/23/25 19:35 Hgb 16.5 g/dL (12.0-16.0) H 06/23/25 19:35 Hct 49.9 % (37.0-47.0) H 06/23/25 19:35 MCV 82.1 fL (80.0-100.0) 06/23/25 19:35 MCH 27.1 pg (25.0-34.0) 06/23/25 19:35 MCHC 33.1 g/dL (32.0-36.0) 06/23/25 19:35 RDW Std Deviation 44.3 fL (36.4-46.3) 06/23/25 19:35 RDW Coeff of Venus 14.8 % (11.5-14.5) H 06/23/25 19:35 Plt Count 438 K/uL (130-400) H 06/23/25 19:35 MPV 9.3 fL (9.4-12.4) L 06/23/25 19:35 Immature Gran % (Auto) 0.3 % 06/23/25 19:35 Neut % (Auto) 71.9 % 06/23/25 19:35 Lymph % (Auto) 22.5 % 06/23/25 19:35 Weber % (Auto) 4.1 % 06/23/25 19:35 Eos % (Auto) 0.9 % 06/23/25 19:35 Baso % (Auto) 0.3 % 06/23/25 19:35 Neut # (Auto) 12.36 K/uL (1.40-6.50) H 06/23/25 19:35 Lymph # (Auto) 3.87 K/uL (1.20-3.40) H 06/23/25 19:35 Weber # (Auto) 0.71 K/uL (0.11-0.59) H 06/23/25 19:35 Eos # (Auto) 0.16 K/uL (0.00-0.50) 06/23/25 19:35 Baso # (Auto) 0.05 K/uL (0.00-0.20) 06/23/25 19:35 Immature Gran # (Auto) 0.06 K/uL (0.01-0.20) 06/23/25 19:35 Sodium 136 mmol/L (136-145) 06/23/25 19:35 Potassium 3.5 mmol/L (3.5-5.1) 06/23/25 19:35 Chloride 100 mmol/L (98-107) 06/23/25 19:35 Carbon Dioxide 26 mmol/L (21-32) 06/23/25 19:35 Anion Gap 10 (3-11) 06/23/25 19:35 BUN 8 mg/dl (6-23) 06/23/25 19:35 Creatinine 1.03 mg/dl (0.6-1.2) 06/23/25 19:35 Est Cr Clr Drug Dosing 88.1 ml/min 06/23/25 19:35 eGFR 67.49 06/23/25 19:35 BUN/Creatinine Ratio 7.8 (10-20) L 06/23/25 19:35 Glucose 134 mg/dl (70-99(Fasting)) H 06/23/25 19:35 Lactate 1.5 mmol/L (0.4-2.0) 06/23/25 19:54 Calcium 9.9 mg/dl (8.6-10.3) 06/23/25 19:35 Total Bilirubin 1.2 mg/dl (0.2-1.0) H 06/23/25 19:35 AST 15 U/L (13-39) 06/23/25 19:35 ALT 14 U/L (7-52) 06/23/25 19:35 Alkaline Phosphatase 107 U/L (34-104) H 06/23/25 19:35 Total Protein 8.1 gm/dl (6.0-8.3) 06/23/25 19:35 Albumin 3.9 gm/dl (3.4-5.0) 06/23/25 19:35 Globulin 4.2 gm/dl (2.5-4.0) H 06/23/25 19:35 Albumin/Globulin Ratio 0.9 (0.9-2) 06/23/25 19: Lipase 26 U/L (11-82) 06/23/25 19:35 Procalcitonin 0.06 ng/ml (0-0.5) 06/23/25 19:35 Urine Color [place] 06/23/25 19:35 Urine Appearance Clear (Clear) 06/23/25 19:35 Urine pH 5.5 (4.5-7.5) 06/23/25 19:35 Ur Specific [place] 1.026 (1.000-1.030) 06/23/25 19:35 Urine Protein 1+ (Negative) H 06/23/25 19:35 Urine Glucose (UA) Negative (Negative) 06/23/25 19:35 Urine Ketones 1+ (Negative) H 06/23/25 19:35 Urine Blood Trace (Negative) H 06/23/25 19:35 Urine Nitrite Positive (Negative) A 06/23/25: Urine Bilirubin 2+ (Negative) H 06/23/25 19:35 Urine Urobilinogen Positive (Negative) H 06/23/25 19:35 Ur Leukocyte Esterase 1+ (Negative) H 06/23/25 19:35 Urine WBC (Auto) 6-10 /hpf (0-5) H 06/23/25 19:35 Urine RBC (Auto) 6-10 /hpf (0-2) H 06/23/25 19:35 U Hyaline Cast (Auto) 0-2 /lpf (0-2) 06/23/25 19:35 U Epithel Cells (Auto) 0-2 /hpf (0-2) 06/23/25 19:35 Urine Bacteria (Auto) None Seen (None Seen) 06/23/25 19:35 Calcium Oxalate Crystal Present (None Prsent) A 06/23/25 19:35 Urine Mucus Present (None Prsent) A 06/23/25 19:35 Urine Comment 06/23/25 19:35 Impressions Abdomen/Pelvis CT 06/23/25 19:40 Exam(s): CT ABDOMEN + PELVIS With Contrast IV Amt: 90 ml optiray 320 EXAM: CT Abdomen and Pelvis With Intravenous Contrast CLINICAL HISTORY: Eval for diverticulitis. TECHNIQUE: Axial computed tomography images of the abdomen and pelvis with intravenous contrast. CTDI is 36 mGy and DLP is 2067 mGy-cm. Automated exposure control was utilized for the study. A dose lowering technique was utilized adhering to the principles of ALARA. CONTRAST: Patient received 90 ml optiray 320 of IV contrast COMPARISON: CT abdomen and pelvis with contrast dated 05/05/2025 FINDINGS: Limitations: There is respiratory artifact, which degrades image quality on multiple image slices. Lung bases: Unremarkable. No mass. No consolidation. ABDOMEN: Liver: Unremarkable. No mass. Gallbladder and bile ducts: Status post cholecystectomy, stable. No ductal dilation. Pancreas: Unremarkable. No mass. No ductal dilation. Spleen: Unremarkable. No splenomegaly. Adrenals: Unremarkable. No mass. Kidneys and ureters: Unremarkable. No solid mass. No hydronephrosis. Stomach and bowel: Focal pericolonic fat stranding noted along the lateral aspect of the proximal sigmoid colon with regional diverticula. The remaining small and large bowel is unremarkable. Minimal stool burden. PELVIS: Appendix: No findings to suggest acute appendicitis. Bladder: Unremarkable. No mass. Reproductive: Status post hysterectomy. ABDOMEN and PELVIS: Intraperitoneal space: Unremarkable. No free air. No significant fluid collection. Bones/joints: No acute fracture. No dislocation. Soft tissues: Unremarkable. Vasculature: Unremarkable. No abdominal aortic aneurysm. Lymph nodes: Unremarkable. No enlarged lymph nodes. IMPRESSION: Focal pericolonic fat stranding noted along the lateral aspect of the proximal sigmoid colon with regional diverticula. The primary consideration is sigmoid diverticulitis. No abscess or perforation. No bowel obstruction. Electronically signed by: Cade Springer MD 06/23/25 20:56 PM Code Status & VTE Plan Code Status Full code VTE Prophylaxis Plan VTE Prophylaxis will be ordered: Yes PG Care Time/CCT Total # of Minutes Spent Total Time Spent with Patient: Total time spent is greater than 50% in coordination of care (as documented) at patient's floor/unit and/or counseling patient: Coding Level of Care Code 94972 INT INP/OBS CARE MIN Diagnoses Diverticulitis of sigmoid colon K57.32 Eosinophilic esophagitis K20.0 Moderate persistent asthma without complication J45.40 Asthma complication type: uncomplicated Asthma persistence: persistent Asthma severity: moderate Type 2 diabetes mellitus E11.9 Diabetes mellitus fdc insulin use: without fdc use Gastroparesis K31.84 (3) Asthma Asthma complication type: uncomplicated Asthma persistence: persistent Asthma severity: moderate Qualified Code(s): J45.40 - Moderate persistent asthma, uncomplicated (4) Type 2 diabetes mellitus Diabetes mellitus emt intermediate insulin use: without emt intermediate use
[2025-06-23] MEDS: PANTOprazole 40 MG/10 ML SYR IV ONE (23:07)
[2025-06-23] MEDS: FAMOTIDINE 20MG IV PUSH 20 MG/5 ML SYR IV STA (23:08)
[2025-06-23] MEDS ORDERED: ALBUTEROL HFA 8 GM INHALER INH PRN (23:44)
[2025-06-23] MEDS ORDERED: RIZATRIPTAN BENZOATE 10 MG TAB PO PRN (23:44)
[2025-06-23] MEDS ORDERED: AZELASTINE HCL 0.1% NASAL 200 SPRAYS/27,400 MCG BTL NAE PRN (23:44)
[2025-06-23] MEDS ORDERED: FLUTICASONE PROPIONATE NA SPR 16 GM BTL NAE PRN (23:44)
[2025-06-24] MEDS: LACTATED RINGER'S 1,000 ML IV SCH (00:09)
[2025-06-24] MEDS ORDERED: FLUTICASONE/VILANTEROL 100/25MCG 14 PUFFS/INHALER INH PRN (01:46)
[2025-06-24] MEDS: ACETAMINOPHEN 1,000 MG/100 ML VIAL IV PRN (03:51)
[2025-06-24] MEDS: ONDANSETRON INJ 2 MG/ML 2 ML VIAL IV PRN (05:15)
[2025-06-24] MEDS: metroNIDAZOLE 500 MG/100 ML BAG IV SCH (05:15)
[2025-06-24 07:41] LABS: Hematocrit (blood only) 42.9 % (37.0-47.0); Hemoglobin 14.0 g/dL (12.0-16.0); Immature Granulocytes # (auto) 0.04 K/uL (0.01-0.20); Immature Granulocytes % (auto) 0.4 %; Mean Corpuscular Hemoglobin 26.9 pg (25.0-34.0); Mean Corpuscular Volume 82.5 fL (80.0-100.0); Platelet Count 272 K/uL (130-400); RDW Standard Deviation 44.5 fL (36.4-46.3); Red Blood Count 5.20 M/uL (4.20-5.40); White Blood Count 10.31 K/ul (4.8-10.8)
[2025-06-24 08:02] LABS: Alanine Aminotransferase 9.0 U/L (7-52); Albumin Globulin Ratio 1.1 (0.9-2); Albumin Level 3.3 gm/dl (3.4-5.0); Alkaline Phosphatase 78.0 U/L (34-104); Anion Gap 8.0 (3-11); Bilirubin,Total 1.1 mg/dl (0.2-1.0); Blood Urea Nitrogen 7.0 mg/dl (6-23); Calcium 9.1 mg/dl (8.6-10.3); Carbon Dioxide 26.0 mmol/L (21-32); Chloride 105.0 mmol/L (98-107); Creatinine Clr Calc Pharmacy 110.7 ml/min; Globulin 2.9 gm/dl (2.5-4.0); Glucose 112.0 mg/dl (70-99(Fasting)); Magnesium 1.9 mg/dl (1.7-2.4); Potassium 3.8 mmol/L (3.5-5.1); Sodium 139.0 mmol/L (136-145); Total Protein 6.2 gm/dl (6.0-8.3)
[2025-06-24] MEDS ORDERED: MoRPHine SULFATE 2 MG/ML CARP IV PRN (08:10)
[2025-06-24] MEDS: FAMOTIDINE 20 MG TAB PO SCH (08:40)
[2025-06-24] MEDS: CETIRIZINE HCL 10 MG TABLET PO SCH (08:40)
[2025-06-24] MEDS: MULTIVITAMIN TAB PO SCH (08:40)
[2025-06-24] MEDS: CIPROFLOXACIN / D5W 400 MG/200 ML BAG IV SCH (09:16)
[2025-06-24] MEDS ORDERED: KETOROLAC TROMETHAMINE 15 MG/ML VIAL IV PRN (09:24)
--- NOTE | 2025-06-24 12:42 | Hospitalist Progress Note ---
"Date of Service June 24, 2025 Assessment & Plan (1) Diverticulitis of sigmoid colon: (2) Eosinophilic esophagitis: (3) Asthma: (4) Type 2 diabetes mellitus: (5) Gastroparesis: Plan The patient is a 49-year-old female with past medical history including hyperlipidemia, interstitial cystitis, mixed urge and stress urinary incontinence, diabetes mellitus type 2, neurocardiogenic presyncope, morbid obesity, allergic rhinitis, esophageal dysphagia, eosinophilic esophagitis, ane yuval, GERD, and eosinophilic asthma. She presents to the emergency department with several days of worsening abdominal pain and left lower quadrant, without nausea or vomiting, similar to previous episodes of diverticulitis. CT scan abdomen and pelvis is consistent with sigmoid diverticulitis. She was admitted for management of such. #Diverticulitis of sigmoid colon | Gastroparesis - This is her third case of diverticulitis this year, with first being in December 2024 involving the sigmoid colon, the second episode being in April 2025 involving the transverse colon. - She had been on a high-fiber diet for diverticulitis, but has also had to try to match that with her low fiber diet associated with gastroparesis - Leukocytosis now resolved - Continue Cipro 400 mg IV Q12H and Flagyl 500 mg IV Q8H - Continue Protonix 40 mg BID, famotidine 20 mg BID - Tylenol PRN mild pain/fever - Continue prucalopride for gastroparesis - She has had to have colonoscopy changed few times due to recurrences of diverticulitis, and presently has a colonoscopy scheduled with Dr. Murillo in July - Advanced to clear liquid diet - Cloth Carrier consulted #Hyperlipidemia - Hold niacin. Niacin was started in March, and may be contributing to some symptoms since that time as well #Allergic rhinitis | Asthma | Eosinophilic esophagitis - Continue azelastine, cetirizine, Dulera, fluticasone propionate nasal spray - Albuterol HFA 2 puffs 4 times daily as needed #Migraine - Continue rizatriptan as needed - On atogepant 60 mg p.o. daily as outpatient, continue if formulary #Bladder spasm | interstitial cystitis - Continue vibegron #Weight management - hold semaglutide while inpatient VTE PPx: Dispo: continued inpatient stay for IV antibiotics, symptom control, diet advancement Consulted dietitian Advanced diet Admission and Anticipated Discharge Date Admission Date: June 23, 2025 Subjective Patient seen and evaluated at bedside. She reports ongoing dull achy abdominal pain. She has intermittent sharp stabbing pains. She had some nausea overnight when she was experiencing sharp abdominal pain, no vomiting, no nausea since then. She also reports that for the past 2 months, she has not been able to eat as much as she used to due to feeling full early and abdominal pain that radi ates to her back. She discussed this with her GI doctor who wanted her to have a colonoscopy prior to adjusting any of her medications, but unfortunately she has had to cancel multiple colonoscopies due to recurrent diverticulitis. We discussed advancing her diet to clear liquids. No additional complaints or concerns at this time. Physical Exam Physical Exam: General: No acute distress, nondiaphoretic, well-developed, well-nourished. Skin: Warm, dry. No rashes or peripheral edema noted. Cardiac: Regular rate and rhythm without murmurs gallops or rubs. Pulm: Clear to auscultation bilaterally without wheezes, rales or rhonchi. Normal respiratory effort. 95% on room air. Abdominal: Soft, tender to palpation of LLQ and LUQ, nondistended. Hypoactive bowel sounds. Neuro: A&O x3. No focal neurological deficits. Results & Data Results & Data Vital Signs (Past 12 Hours) Vital Signs Temp Pulse Resp BP Pulse Ox O2 Del Method 06/24/25 08:15 Room Air 06/24/25 07:14 97.3 F L 60 16 114/79 97 Room Air Laboratory Results Reviewed CBC with differential, CMP, chemistries, UA, urine culture PG Care Time/CCT Total # of Minutes Spent Total Time Spent with Patient: Total time spent is greater than 50% in coordination of care (as documented) at patient's floor/unit and/or counseling patient: Coding Level of Care Code 82763 SUB INP/OBS CARE 50MIN Diagnoses Diverticulitis of sigmoid colon K57.32 Eosinophilic esophagitis K20.0 Moderate persistent asthma without complication J45.40 Asthma complication type: uncomplicated Asthma persistence: persistent Asthma severity: moderate Type 2 diabetes mellitus E11.9 Diabetes mellitus long term care phlebotomist insulin use: without long term care phlebotomist use Gastroparesis K31.84 (3) Asthma Asthma complication type: uncomplicated Asthma persistence: persistent Asthma severity: moderate Qualified Code(s): J45.40 - Moderate persistent asthma, uncomplicated (4) Type 2 diabetes mellitus Diabetes mellitus shelter insulin use: without long term care phlebotomist use"
[2025-06-24] MEDS: VIBEGRON 75 MG TAB PO SCH (21:03)
--- NOTE | 2025-06-24 21:50 | Electrocardiogram Report ---
Test Reason : Blood Pressure : */* mmHG Vent. Rate : 92 BPM Atrial Rate : 92 BPM P-R Int : 154 ms QRS Dur : 80 ms QT Int : 336 ms P-R-T Axes : -22 3 25 degrees QTcB Int : 415 ms Normal sinus rhythm Normal ECG When compared with ECG of 07-Nov-2024 12:48, No significant change was found Confirmed by Ryan Mallory ([id number]) on 06/24/2025 9:50:26 PM Referred By: Confirmed By: Ryan Mallory
[2025-06-25 07:20] LABS: Hematocrit (blood only) 40.2 % (37.0-47.0); Hemoglobin 13.1 g/dL (12.0-16.0); Immature Granulocytes # (auto) 0.03 K/uL (0.01-0.20); Immature Granulocytes % (auto) 0.4 %; Mean Corpuscular Hemoglobin 27.1 pg (25.0-34.0); Mean Corpuscular Volume 83.1 fL (80.0-100.0); Platelet Count 260 K/uL (130-400); RDW Standard Deviation 44.6 fL (36.4-46.3); Red Blood Count 4.84 M/uL (4.20-5.40); White Blood Count 7.81 K/ul (4.8-10.8)
[2025-06-25 07:46] LABS: Alanine Aminotransferase 9.0 U/L (7-52); Albumin Globulin Ratio 1.1 (0.9-2); Albumin Level 3.2 gm/dl (3.4-5.0); Alkaline Phosphatase 69.0 U/L (34-104); Anion Gap 6.0 (3-11); Bilirubin,Total 0.8 mg/dl (0.2-1.0); Blood Urea Nitrogen 6.0 mg/dl (6-23); Calcium 9.0 mg/dl (8.6-10.3); Carbon Dioxide 29.0 mmol/L (21-32); Chloride 104.0 mmol/L (98-107); Creatinine Clr Calc Pharmacy 108.1 ml/min; Globulin 2.9 gm/dl (2.5-4.0); Glucose 113.0 mg/dl (70-99(Fasting)); Magnesium 2.0 mg/dl (1.7-2.4); Potassium 3.7 mmol/L (3.5-5.1); Sodium 139.0 mmol/L (136-145); Total Protein 6.1 gm/dl (6.0-8.3)
[2025-06-25] MEDS: ONDANSETRON INJ 2 MG/ML 2 ML VIAL IV PRN (08:59)
[2025-06-25] MEDS: ACETAMINOPHEN 325 MG TAB PO PRN (08:59)
--- NOTE | 2025-06-25 15:25 | Hospitalist Progress Note ---
"Date of Service June 25, 2025 Assessment & Plan (1) Diverticulitis of sigmoid colon: (2) Eosinophilic esophagitis: (3) Asthma: (4) Type 2 diabetes mellitus: (5) Gastroparesis: Plan The patient is a 49-year-old female with past medical history including hyperlipidemia, interstitial cystitis, mixed urge and stress urinary incontinence, diabetes mellitus type 2, neurocardiogenic presyncope, morbid obesity, allergic rhinitis, esophageal dysphagia, eosinophilic esophagitis, ane yuval, GERD, and eosinophilic asthma. She presents to the emergency department with several days of worsening abdominal pain and left lower quadrant, without nausea or vomiting, similar to previous episodes of diverticulitis. CT scan abdomen and pelvis is consistent with sigmoid diverticulitis. She was admitted for management of such. #Diverticulitis of sigmoid colon | Gastroparesis - This is her third case of diverticulitis this year, with first being in December 2024 involving the sigmoid colon, the second episode being in April 2025 involving the transverse colon. - She had been on a high-fiber diet for diverticulitis, but has also had to try to match that with her low fiber diet associated with gastroparesis - Leukocytosis resolved 06/24 - Continue Cipro 400 mg IV Q12H and Flagyl 500 mg IV Q8H - Continue Protonix 40 mg BID, famotidine 20 mg BID - Tylenol PRN mild pain/fever - Continue prucalopride for gastroparesis - She has had to have colonoscopy changed few times due to recurrences of diverticulitis, and presently has a colonoscopy scheduled with Dr. Murillo in July - Advanced to full liquid diet - Technician Helper Instrument consulted #Hyperlipidemia - Hold niacin. Niacin was started in March, and may be contributing to some symptoms since that time as well #Allergic rhinitis | Asthma | Eosinophilic esophagitis - Continue azelastine, cetirizine, Dulera, fluticasone propionate nasal spray - Albuterol HFA 2 puffs 4 times daily as needed #Migraine - Continue rizatriptan as needed - On atogepant 60 mg p.o. daily as outpatient, continue if formulary #Bladder spasm | interstitial cystitis - Continue vibegron #Weight management - hold semaglutide while inpatient VTE PPx: SCDs Dispo: continued inpatient stay for IV antibiotics, symptom control, diet advancement Advanced diet Admission and Anticipated Discharge Date Admission Date: June 23, 2025 Supervising Physician Co-Signing Physician Notes PA Supervision Note: I did not personally see or examine the patient today, but I verified all gauthier points of MICHELLE Mak's assessment and plan with the following exceptions/additions: None Subjective Patient seen and evaluated at bedside. She reports feeling okay at this time. She will tolerated her clear liquid diet for dinner yesterday. However this morning, she developed left lower quadrant abdominal pain and nausea following her clear liquid diet breakfast. She tolerated lunch okay. She explains that she does not like the broth here so she really has only been eating Jell-O and Japanese ice. We discussed trying a full liquid diet, which she would like. She is passing gas. No additional complaints or concerns at this time. Physical Exam Physical Exam: General: No acute distress, nondiaphoretic, well-developed, well-nourished. Skin: Warm, dry. No rashes or peripheral edema noted. Cardiac: Regular rate and rhythm without murmurs gallops or rubs. Pulm: Clear to auscultation bilaterally without wheezes, rales or rhonchi. Normal respiratory effort. 96% on room air. Abdominal: Soft, tender to palpation of LLQ and LUQ, nondistended. Bowel sounds present. Neuro: A&O x3. No focal neurological deficits. Results & Data Results & Data Vital Signs (Past 12 Hours) Vital Signs Temp Pulse Resp BP Pulse Ox O2 Del Method 06/25/25 14:57 98.2 F 58 L 16 121/82 96 Room Air 06/25/25 08:02 97.5 F L 56 L 16 141/98 H 96 Room Air Laboratory Results Reviewed CBC with differential, CMP PG Care Time/CCT Total # of Minutes Spent Total Time Spent with Patient: Total time spent is greater than 50% in coordination of care (as documented) at patient's floor/unit and/or counseling patient: Coding Level of Care Code 57684 SUB INP/OBS CARE 3/50MIN Diagnoses Diverticulitis of sigmoid colon K57.32 Eosinophilic esophagitis K20.0 Moderate persistent asthma without complication J45.40 Asthma complication type: uncomplicated Asthma persistence: persistent Asthma severity: moderate Type 2 diabetes mellitus E11.9 Diabetes mellitus assisted insulin use: without assisted use Gastroparesis K31.84 (3) Asthma Asthma complication type: uncomplicated Asthma persistence: persistent Asthma severity: moderate Qualified Code(s): J45.40 - Moderate persistent asthma, uncomplicated (4) Type 2 diabetes mellitus Diabetes mellitus assisted insulin use: without assisted use"
[2025-06-26 06:51] LABS: Hematocrit (blood only) 41.3 % (37.0-47.0); Hemoglobin 13.6 g/dL (12.0-16.0); Immature Granulocytes # (auto) 0.03 K/uL (0.01-0.20); Immature Granulocytes % (auto) 0.3 %; Mean Corpuscular Hemoglobin 27.1 pg (25.0-34.0); Mean Corpuscular Volume 82.4 fL (80.0-100.0); Platelet Count 288 K/uL (130-400); RDW Standard Deviation 43.6 fL (36.4-46.3); Red Blood Count 5.01 M/uL (4.20-5.40); White Blood Count 9.64 K/ul (4.8-10.8)
[2025-06-26 07:18] LABS: Alanine Aminotransferase 10.0 U/L (7-52); Albumin Globulin Ratio 1.1 (0.9-2); Albumin Level 3.3 gm/dl (3.4-5.0); Alkaline Phosphatase 69.0 U/L (34-104); Anion Gap 8.0 (3-11); Bilirubin,Total 0.6 mg/dl (0.2-1.0); Blood Urea Nitrogen 5.0 mg/dl (6-23); Calcium 9.2 mg/dl (8.6-10.3); Carbon Dioxide 28.0 mmol/L (21-32); Chloride 104.0 mmol/L (98-107); Creatinine Clr Calc Pharmacy 102.1 ml/min; Globulin 3.0 gm/dl (2.5-4.0); Glucose 114.0 mg/dl (70-99(Fasting)); Magnesium 2.0 mg/dl (1.7-2.4); Potassium 3.7 mmol/L (3.5-5.1); Sodium 140.0 mmol/L (136-145); Total Protein 6.3 gm/dl (6.0-8.3)
--- NOTE | 2025-06-26 11:52 | Hospitalist Progress Note ---
Date of Service June 26, 2025 Assessment & Plan (1) Diverticulitis of sigmoid colon: (2) Eosinophilic esophagitis: (3) Asthma: (4) Type 2 diabetes mellitus: (5) Gastroparesis: Plan The patient is a 49-year-old female with past medical history including hyperlipidemia, interstitial cystitis, mixed urge and stress urinary incontinence, diabetes mellitus type 2, neurocardiogenic presyncope, morbid obesity, allergic rhinitis, esophageal dysphagia, eosinophilic esophagitis, ane yuval, GERD, and eosinophilic asthma. She presents to the emergency department with several days of worsening abdominal pain and left lower quadrant, without nausea or vomiting, similar to previous episodes of diverticulitis. CT scan abdomen and pelvis is consistent with sigmoid diverticulitis. She was admitted for management of such. #Diverticulitis of sigmoid colon | Gastroparesis - This is her third case of diverticulitis this year, with first being in December 2024 involving the sigmoid colon, the second episode being in April 2025 involving the transverse colon. - She had been on a high-fiber diet for diverticulitis, but has also had to try to match that with her low fiber diet associated with gastroparesis. Lease Analyst consulted, appreciate assistance - Leukocytosis resolved 06/24 - Continue Cipro and Flagyl - switched from IV to PO 06/26 and adjusted Flagyl dosing from Q8H to Q12H per pharmacist's recommendation - Continue Protonix 40 mg BID, famotidine 20 mg BID - Tylenol PRN mild pain/fever - Continue prucalopride for gastroparesis - She has had to have colonoscopy changed few times due to recurrences of diverticulitis, and presently has a colonoscopy scheduled with Dr. Murillo in July - Well-tolerated full liquid diet. Now advanced to low fiber diet #Hyperlipidemia - Hold niacin. Niacin was started in March, and may be contributing to some symptoms since that time as well #Allergic rhinitis | Asthma | Eosinophilic esophagitis - Continue azelastine, cetirizine, Dulera, fluticasone propionate nasal spray - Albuterol HFA 2 puffs 4 times daily as needed #Migraine - Continue rizatriptan as needed - On atogepant 60 mg p.o. daily as outpatient, continue if formulary #Bladder spasm | interstitial cystitis - Continue vibegron #Weight management - hold semaglutide while inpatient. Recommend discontinuing semaglutide given gastroparesis and patient taking prucalopride, but will leave that to the discretion of her outpatient providers VTE PPx: SCDs Dispo: Anticipate discharge home tomorrow 06/27 pending tolerance of diet advancement and switching to oral antibiotics Advanced diet Switched antibiotic route and frequency Discussed case with pharmacy Admission and Anticipated Discharge Date Admission Date: June 23, 2025 Supervising Physician Co-Signing Physician Notes PA Supervision Note: I did not personally see or examine the patient today, but I verified all gauthier points of MICHELLE Mak's assessment and plan with the following exceptions/additions: None Subjective Patient seen and evaluated at bedside. She reports feeling somewhat better today. She is well-tolerating her full liquid diet without nausea or significant pain. She continues to have a "pressure" in her LLQ with intermittent "sharp pain that only lasts a second." She notes her pain overall has improved compared to a few days ago. We discussed advancing to a low fiber diet which she would like to try. If she well tolerates this, we discussed discharging home tomorrow. No additional complaints or concerns at this time. Physical Exam Physical Exam: General: No acute distress, nondiaphoretic, well-developed, well-nourished. Skin: Warm, dry. No rashes or peripheral edema noted. Cardiac: Regular rate and rhythm without murmurs gallops or rubs. Pulm: Clear to auscultation bilaterally without wheezes, rales or rhonchi. Normal respiratory effort. 94% on room air. Abdominal: Soft, mild tenderness to palpation of LLQ, nondistended. Bowel sounds present. Neuro: A&O x3. No focal neurological deficits. Results & Data Results & Data Vital Signs (Past 12 Hours) Vital Signs Temp Pulse Resp BP Pulse Ox O2 Del Method 06/26/25 08:03 Room Air 06/26/25 07:20 98.4 F 70 14 128/88 94 Room Air Laboratory Results Reviewed CBC with differential, CMP, mag PG Care Time/CCT Total # of Minutes Spent Total Time Spent with Patient: Total time spent is greater than 50% in coordination of care (as documented) at patient's floor/unit and/or counseling patient: Coding Level of Care Code 60731 SUB INP/OBS CARE 3/50MIN Diagnoses Diverticulitis of sigmoid colon K57.32 Eosinophilic esophagitis K20.0 Moderate persistent asthma without complication J45.40 Asthma complication type: uncomplicated Asthma persistence: persistent Asthma severity: moderate Type 2 diabetes mellitus E11.9 Diabetes mellitus alf insulin use: without alf use Gastroparesis K31.84 (3) Asthma Asthma complication type: uncomplicated Asthma persistence: persistent Asthma severity: moderate Qualified Code(s): J45.40 - Moderate persistent asthma, uncomplicated (4) Type 2 diabetes mellitus Diabetes mellitus intermediate project manager insulin use: without intermediate project manager use
[2025-06-26] MEDS: CIPROFLOXACIN 500 MG TAB PO SCH (20:35)
[2025-06-26] MEDS: metroNIDAZOLE 500 MG TAB PO SCH (20:35)
[2025-06-27 07:07] VITALS: BP 117/82; PULSE 57; RESP 20; TEMP 98.2; O2SAT 93
--- NOTE | 2025-06-27 11:55 | Discharge Summary ---
"Discharge Summary Date of Service June 27, 2025 Principal Dx & Hospital Course #1 = Principal Diagnosis (1) Diverticulitis of sigmoid colon: (2) Eosinophilic esophagitis: (3) Asthma: (4) Type 2 diabetes mellitus: (5) Gastroparesis: Plan The patient is a 49-year-old female with past medical history including hyperlipidemia, interstitial cystitis, mixed urge and stress urinary incontinence, diabetes mellitus type 2, neurocardiogenic presyncope, morbid obesity, allergic rhinitis, esophageal dysphagia, eosinophilic esophagitis, anemia, GERD, and eosinophilic asthma. She presents to the emergency department with several days of worsening abdominal pain and left lower quadrant, without nausea or vomiting, similar to previous episodes of diverticulitis. CT scan abdomen and pelvis is consistent with sigmoid diverticulitis. She was admitted for management of such. #Diverticulitis of sigmoid colon | Gastroparesis - This is her third case of diverticulitis this year, with first being in December 2024 involving the sigmoid colon, the second episode being in April 2025 involving the transverse colon. - She had been on a high-fiber diet for diverticulitis, but has also had to try to match that with her low fiber diet associated with gastroparesis. Rn Triage consulted, appreciate assistance - Leukocytosis resolved 06/24 - Well-tolerated advancement to low-fiber diet. Recommend continuing a low fiber diet for a couple of weeks and then can slowly advance back to her regular diet - Continue Cipro and Flagyl - switched from IV to PO 06/26 and adjusted Flagyl dosing from Q8H to Q12H per pharmacist's recommendation. Discharged on Cipro 500 mg PO BID and Flagyl 500 mg PO BID through 07/03 to complete a 10 day total antibiotic course - Continue prucalopride for gastroparesis - She has had to have colonoscopy changed few times due to recurrences of diverticulitis, and presently has a colonoscopy scheduled with Dr. Murillo in July. Recommended her to reach out to Dr. Murillo regarding her hospitalization and will likely need to have this colonoscopy rescheduled again unfortunately #Hyperlipidemia - Hold niacin. Niacin was started in March, and may be contributing to some symptoms since that time as well #Allergic rhinitis | Asthma | Eosinophilic esophagitis - Continue azelastine, cetirizine, Dulera, fluticasone propionate nasal spray - Albuterol HFA 2 puffs 4 times daily as needed #Migraine - Continue rizatriptan as needed - On atogepant 60 mg p.o. daily as outpatient, continue if formulary #Bladder spasm | interstitial cystitis - Continue vibegron #Weight management - hold semaglutide while inpatient. Recommend discontinuing semaglutide given gastroparesis and patient taking prucalopride, but will leave that to the discretion of her outpatient providers VTE PPx: SCDs Dispo: discharge home Admission HPI Per Admitting Provider The patient is a 49-year-old female with past medical history including hyperlipidemia, interstitial cystitis, mixed urge and stress urinary incontinence, diabetes mellitus type 2, neurocardiogenic presyncope, morbid obesity, allergic rhinitis, esophageal dysphagia, eosinophilic esophagitis, anemia, GERD, and eosinophilic asthma. She presents to the emergency department with several days of worsening abdominal pain and left lower quadrant, without nausea or vomiting, similar to previous episodes of diverticulitis. CT scan abdomen and pelvis is consistent with sigmoid diverticulitis. Significant laboratory abnormalities: WBC 17.21, hemoglobin 16.5, hematocrit 49.9, glucose 134, potassium 3.5. Patient was placed on Cipro 400 mg IV, Flagyl 500 mg IV, and Plasma-Lyte 1 L bolus, and was then referred for evaluation for admission to the [facility]. Discharge Exam General: No acute distress, nondiaphoretic, well-developed, well-nourished. Skin: Warm, dry. No rashes or peripheral edema noted. Cardiac: Regular rate and rhythm without murmurs gallops or rubs. Pulm: Clear to auscultation bilaterally without wheezes, rales or rhonchi. Normal respiratory effort. 93% on room air. Abdominal: Soft, mild tenderness to palpation of LLQ, nondistended. Bowel sounds present. Neuro: A&O x3. No focal neurological deficits. Discharge Plan Discharge Items Patient Disposition: Home - Self-Care Reason For Visit: DIVERTICULITIS Discharge Diagnosis: Sigmoid diverticulitis Condition on Discharge: Fair Activity: Resume your previous activity Non-emergency contact: Primary Care Provider Call non-emergency contact if: you have any medication questions, your symptoms worsen, your pain is not controlled and you have a fever Follow-up/Referrals: Misael Davis, [Primary Care Provider] - 07/01/25 11:00 am (Follow-up in 1-2 weeks Appointment will be with Pamela Carbajal PA-C) Diet: Low Fiber Addtl Attending Provider Instructions: Kristen, You were admitted to the hospital with sigmoid diverticulitis. This was treated with bowel rest and IV antibiotics while you were hospitalized. You have well tolerated the advancement to a low fiber diet. You will continue taking oral antibiotics at home to complete your course. Upon discharge from the hospital: * Take Ciprofloxacin 500 mg twice daily and Flagyl 500 mg twice daily through 07/03. These are oral antibiotics used to treat your sigmoid diverticulitis. It is important to complete this course of antibiotics even if you begin to feel better. Not completing the antibiotics can result in the infection returning and/or can make future infections harder to treat. * Take Zofran 4 mg every 6 hours as needed for nausea. * Hold off on taking your Niacin medication, as it may have contributed to your symptoms. You can discuss this further with your PCP at your follow-up appointment. * Follow a low fiber diet for the next couple of weeks, then you can slowly advance back to regular diet. * Follow-up with GI outpatient. They may reschedule your colonoscopy in July given this acute episode of diverticulitis. * Follow-up with your PCP in 1-2 weeks. I recommend discussing with your PCP about the benefit of semaglutide with your ongoing GI issues/underlying gastroparesis. Please return to the hospital if you experience any of the following: Fever of 100.5 F or higher, inability to tolerate oral intake, severe abdominal pain, chest pain, difficulty breathing, passing out, confusion, or any other symptoms concerning for you. It was a pleasure taking care of you while you were in the hospital! Pending Studies at Discharge: No Stand-Alone Forms: My [facility], Smoking Cessation Medications and DC Order Prescriptions: New metronidazole 500 mg Tablet 500 mg PO BID Qty: 13 0RF ciprofloxacin HCl 500 mg Tablet 500 mg PO BID Qty: 13 0RF ondansetron HCl 4 mg tablet 4 mg PO Q6H PRN (Reason: nausea and vomiting) Qty: 30 0RF Continued pantoprazole 40 mg tablet,delayed release (DR/EC) 40 mg PO BID Qty: 60 2RF (DME) blood-glucose meter [OneTouch Ultra2 Meter] Misc See Rx Instructions .Route Qty: 1 0RF Rx Instructions: As directed (DME) lancets [OneTouch Delica Lancets] 30 gauge misc See Rx Instructions .Route Qty: 100 3RF Rx Instructions: As directed (DME) OneTouch Ultra Test Strip See Rx Instructions .Route Qty: 100 5RF Rx Instructions: Tests three times per day (DME) inhaler,assist devices,access Device See Rx Instructions .MEDSUPPLY Qty: 1 0RF Rx Instructions: spacer for HFA inhlaer, use as directed olopatadine 0.1 % drops 1 drp OP BID PRN (Reason: Eye Irritation) Qty: 5 11RF estradiol 0.05 mg/24 hr patch semiweekly 1 patch transdermal .2xweek Qty: 8 5RF Rhofade 1 % cream 1 applic topical DAILY Qty: 30 3RF Rx Instructions: Apply to face once daily in the morning as directed. semaglutide 1 mg/dose (4 mg/3 mL) pen injector 1 mg subcut Q7D Qty: 3 1RF Patient Comments: monday Rx Instructions: sundays Qulipta 60 mg tablet 60 mg PO QPM ondansetron 4 mg Tablet,Disintegrating 4 mg PO TID PRN (Reason: Nausea) azelastine 137 mcg (0.1 %) aerosol,spray 2 spray INTNAS QAM PRN (Reason: Allergy Symptoms) cetirizine [Zyrtec] 10 mg Tablet 10 mg PO BID famotidine 20 mg Tablet 20 mg PO QAM rizatriptan 10 mg tablet 10 mg PO UD PRN (Reason: Migraine Headache) Rx Instructions: as directed prucalopride 2 mg tablet 2 mg PO QPM fluticasone propionate 50 mcg/actuation spray,suspension 1 spray intranasal BID PRN (Reason: allergies) Patient Comments: 1 SPRAY EACH NOSTRL >USES PRN Rx Instructions: ONE SPRAY IN EACH NOSTRIL TWICE DAILY Dulera 100-5 mcg/actuation HFA aerosol inhaler 2 puff inhalation BID PRN (Reason: Shortness Of Breath) Rx Instructions: INHALE TWO PUFFS BY MOUTH TWICE DAILY NEEDED FOR SHORTNESS OF BREATH Dupixent Syringe 300 mg/2 mL syringe 300 mg SUBCUT .EVERY 2 WEEKS lisinopril 5 mg tablet 5 mg PO QPM albuterol sulfate 90 mcg/actuation Hfa Aerosol Inhaler 2 puff INHALATION Q4 PRN (Reason: Shortness Of Breath Or Wheezing) Gemtesa 75 mg tablet 75 mg PO QPM Held niacin 500 mg tablet extended release 24 hr 500 mg PO .Nightly Qty: 90 1RF Hold Instructions: Provider's Order Rx Instructions: Take 1 baby aspirin 30 minutes prior to taking this medication. Discharge Orders: Discharge Order (Routine); Ordered 06/27/25 Ordered By: Jessenia Mak Admission Data Admit Date/Time: 06/23/25 22:40 Attending Provider: Micheline Mckeon Admit Provider: Jeff Oscar Primary Care Provider: Misael Davis Other Providers: Jeff Oscar Other Interventions: Discharge Summary Assessment (RN) Last Done: 06/27/25 11:49 Hospital Stay Data Consultations 06/23/25 22:03 ED Decision to Admit Stat Diagnostic Imagining Performed Abdomen/Pelvis CT 06/23/25 19:40 Exam(s): CT ABDOMEN + PELVIS With Contrast IV Amt: 90 ml optiray 320 EXAM: CT Abdomen and Pelvis With Intravenous Contrast CLINICAL HISTORY: Eval for diverticulitis. TECHNIQUE: Axial computed tomography images of the abdomen and pelvis with intravenous contrast. CTDI is 36 mGy and DLP is 2067 mGy-cm. Automated exposure control was utilized for the study. A dose lowering technique was utilized adhering to the principles of ALARA. CONTRAST: Patient received 90 ml optiray 320 of IV contrast COMPARISON: CT abdomen and pelvis with contrast dated 05/05/2025 FINDINGS: Limitations: There is respiratory artifact, which degrades image quality on multiple image slices. Lung bases: Unremarkable. No mass. No consolidation. ABDOMEN: Liver: Unremarkable. No mass. Gallbladder and bile ducts: Status post cholecystectomy, stable. No ductal dilation. Pancreas: Unremarkable. No mass. No ductal dilation. Spleen: Unremarkable. No splenomegaly. Adrenals: Unremarkable. No mass. Kidneys and ureters: Unremarkable. No solid mass. No hydronephrosis. Stomach and bowel: Focal pericolonic fat stranding noted along the lateral aspect of the proximal sigmoid colon with regional diverticula. The remaining small and large bowel is unremarkable. Minimal stool burden. PELVIS: Appendix: No findings to suggest acute appendicitis. Bladder: Unremarkable. No mass. Reproductive: Status post hysterectomy. ABDOMEN and PELVIS: Intraperitoneal space: Unremarkable. No free air. No significant fluid collection. Bones/joints: No acute fracture. No dislocation. Soft tissues: Unremarkable. Vasculature: Unremarkable. No abdominal aortic aneurysm. Lymph nodes: Unremarkable. No enlarged lymph nodes. IMPRESSION: Focal pericolonic fat stranding noted along the lateral aspect of the proximal sigmoid colon with regional diverticula. The primary consideration is sigmoid diverticulitis. No abscess or perforation. No bowel obstruction. Electronically signed by: Cade Springer MD 06/23/25 20:56 PM Pending Results Patient Have Any Pending Studies at Discharge: No Discharge Instructions Given to Patient (Per Discharging Provider) Kristen, You were admitted to the hospital with sigmoid diverticulitis. This was treated with bowel rest and IV antibiotics while you were hospitalized. You have well tolerated the advancement to a low fiber diet. You will continue taking oral antibiotics at home to complete your course. Upon discharge from the hospital: * Take Ciprofloxacin 500 mg twice daily and Flagyl 500 mg twice daily through 07/03. These are oral antibiotics used to treat your sigmoid diverticulitis. It is important to complete this course of antibiotics even if you begin to feel better. Not completing the antibiotics can result in the infection returning and/or can make future infections harder to treat. * Take Zofran 4 mg every 6 hours as needed for nausea. * Hold off on taking your Niacin medication, as it may have contributed to your symptoms. You can discuss this further with your PCP at your follow-up a ppointment. * Follow a low fiber diet for the next couple of weeks, then you can slowly advance back to regular diet. * Follow-up with GI outpatient. They may reschedule your colonoscopy in July given this acute episode of diverticulitis. * Follow-up with your PCP in 1-2 weeks. I recommend discussing with your PCP about the benefit of semaglutide with your ongoing GI issues/underlying gastroparesis. Please return to the hospital if you experience any of the following: Fever of 100.5 F or higher, inability to tolerate oral intake, severe abdominal pain, chest pain, difficulty breathing, passing out, confusion, or any other symptoms concerning for you. It was a pleasure taking care of you while you were in the hospital! Supervising Physician Co-Signing Physician Notes MICHELLE Supervision Note: I did not personally see or examine the patient today, but I verified all gauthier points of MICHELLE Mak's assessment and plan with the following exceptions/additions: None Total Time Total Time Spent Total Time Spent (In Minutes): Greater than 30 minutes spent completing this discharge process including direct patient care, medication reconciliation, documentation, review of labs and images, and coordination of care. Coding Level of Care Code 82151 INP/OBS DISCH >30 MIN Diagnoses Diverticulitis of sigmoid colon K57.32 Eosinophilic esophagitis K20.0 Moderate persistent asthma without complication J45.40 Asthma complication type: uncomplicated Asthma persistence: persistent Asthma severity: moderate Type 2 diabetes mellitus E11.9 Diabetes mellitus detention insulin use: without detention use Gastroparesis K31.84"
== END 2025-06-27 13:08 | disposition home or self-care (01) | DRG 392 ==
LOC: ED 19:13 → 3W 22:40 → SUATTDRO 22:40 → 3W 23:23